=== PATIENT | female | born 1970 | race Caucasian/White ===

== ENCOUNTER 2021-04-10 17:00 | Outpatient (REF) | payer MEDICARE, MEDICAID, SELFPAY | END 2021-04-10 17:01 | disposition home or self-care (01) | LOC: HO.LAB 17:00 | PROVIDERS: Visit Provider Hospitalist | DX: Z20.822 Contact with and (suspected) exposure to COVID-19 (principal); R68.83 Chills (without fever) | CPT/HCPCS: U0003; U0005 ==

== ENCOUNTER → 2022-08-14 14:34 | Outpatient (BNVA) | payer MEDICARE, MEDICAID, SELFPAY | PROVIDERS: PCP Hospitalist; Visit Provider Surgery Vascular Surgery | DX: I83.12 Varicose veins of left lower extremity with inflammation (principal) | CPT/HCPCS: 99202 ==

== ENCOUNTER 2022-11-04 14:25 | Outpatient (REF) | payer MEDICARE, MEDICAID, SELFPAY ==
[2022-11-04 15:39] LABS: MANUAL DIFF FLAG NO
[2022-11-04 18:03] LABS: Basophils Percent Auto 0.4 % (0-2); Eosinophils Absolute Auto 0.1 X10*3/uL (0.0-0.4); Eosinophils Percent Auto 1.6 % (0-4); Hematocrit 42.5 % (37.0-47.0); Hemoglobin 13.6 g/dl (12.0-16.0); Imm Gran Abs Auto 0.02 X10*3/uL (0.00-0.03); Imm Gran Pct Auto 0.2 % (0.0-0.4); Immature Retic Fraction 12.8 % (3.0-15.9); Lymphocytes Percent Auto 24.3 % (20-40); Mean Corpuscular Hemoglobin 28.1 pg (27.0-33.0); Mean Corpuscular Volume 87.8 fL (80.0-98.0); Mean Platelet Volume 10.2 fL (9.4-12.3); Monocytes Absolute Auto 0.7 X10*3/uL (0.1-1.2); Monocytes Percent Auto 8.2 % (2-11); Neutrophils Absolute Auto 5.3 x10*3/uL (2.0-8.3); Neutrophils Percent Auto 65.3 % (45-73); Platelet Count 276 X10*3/uL (160-400); Red Blood Count 4.84 X10*6/uL (4.20-5.50); Retic HGB Equivalent 33.4 pg (30.0-35.0); Reticulocyte Percent 1.8 % (0.5-1.8); Reticulocytes Absolute 0.087 X10*6/uL (0.026-0.095); White Blood Count 8.1 X10*3/uL (4.8-10.8)
[2022-11-04 18:28] LABS: Anion Gap 18 (12-20); Blood Urea Nitrogen 22 mg/dL (9-16); Carbon Dioxide 21 mmol/L (22-29); Chloride 107 mmol/L (96-108); Estimated Glomerular Filt Rate > 60; Glucose Random 90 mg/dL (60-115); Iron 71 mcg/dL (30-160); Percent Iron Saturation 21 % (15-50); Potassium 4.2 mmol/L (3.3-5.1); Sodium 142 mmol/L (135-145); Total Iron Binding Capacity 346 mcg/dL (228-428); Unsaturated Iron Binding 275 ug/dL
== END 2022-11-04 14:26 | disposition home or self-care (01) ==
LOC: HO.LAB 14:25
PROVIDERS: Absent Provider Family Medicine; PCP Hospitalist; Visit Provider Nurse Practitioner Family
DX: J44.9 Chronic obstructive pulmonary disease, unspecified (principal); R05.9 Cough, unspecified; R06.2 Wheezing; Z87.891 Personal history of nicotine dependence
CPT/HCPCS: 36415; 80048; 82785; 83540; 85025; 85045; 86003; 94618; 99202

== ENCOUNTER 2022-11-04 14:25 | Outpatient (AMB) | payer MEDICARE, MEDICAID, SELFPAY ==
--- NOTE | 2022-11-04 14:27 | A.OFFVIS_ITS ---
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 Supervisor Required: No Contour Sander: Contour Sander offered & declined Accompanied by: Self / Same As Patient Allergies venlafaxine [From Effexor] Allergy (Unknown, Verified 11/04/22 14:34) Unknown Medication List - Last Reconciled 11/04/22 by Sushma Parker LPN acetaminophen (Tylenol) 325 mg PO QID PRN albuterol sulfate 90 mcg/actuation (Ventolin HFA) 2 puffs PO Q4-6H PRN albuterol sulfate 2.5 mg (3 mL) inhalation Q4-6H PRN clonazepam mg PO diclofenac sodium 1% 4 grams topical QID PRN 30 days flunisolide 1 spray intranasal BID 1 month fluoxetine mg PO gabapentin 300 mg PO TID 30 days ibuprofen 800 mg PO Q8H ipratropium bromide 17 mcg/actuation (Atrovent HFA) 2 puffs inhalation QID lamotrigine 200 mg PO DAILY meloxicam 15 mg PO DAILY 30 days montelukast 10 mg PO DAILY 3 months prednisone 60 mg PO DAILY HPI Cough HPI Details Paula is a pleasant 52 year old female, former tobacco smoker, quit last year, with 30 pack year history, everyday marijuana vaper with underlying history of asthma and environmental allergies. She was referred by PCP for pulmonary evaluation. She reports progressively worsening dyspnea on exertion, wheezing and dry cough since having COVID last November. She has been using singulair, Atrovent and albuterol with suboptimal control. She avoids using albuterol due to tremors and palpitations. 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 She reports environmental allergies as well as allergies to cats and dogs. She denies any recent allergy testing. She denies any childhood asthma. She reports maternal grandmother, smoker, had lung cancer. [facility] Medical History (Updated 11/04/22 @ 15:48 by Celina Wallace NP) Polycythemia Surgical History H/O right knee surgery History of cholecystectomy History of extraction of renal calculus Hx of spinal fusion Family History Father Diabetes Heart disease Alzheimer disease Mother Diabetes Stroke Brain tumor H/O bilateral mastectomy Maternal Grandmother Lung cancer Brother Hypertension Obesity Diabetes Family/Other Polycythemia Diabetes Social History (Updated 11/04/22 @ 14:37 by Sushma Parker LPN) Housing: House Alcohol intake: never Patient Tobacco Use Status: Former Tobacco user Cigarettes Per Day: 10 Years Smoked: 30 intermittently. e-Cigarette/Vaping Use: Never Used Second Hand Smoke Exposure: No Substance Use Type: Marijuana service: No Current occupational status: disabled Cognitive needs: No Hearing needs: Yes Vision needs: No Review of Systems Const Denies chills, Denies excessive sweating, Denies fever(s), Denies headache(s) and Denies night sweats Eyes Denies dry eyes, Denies irritation and Reports itchy eyes ENT Reports Normal hearing present, Denies headache(s), Denies nasal congestion, Denies nasal discharge, Denies post nasal drip and Denies sore throat Card Denies chest pain, Denies chest pain at rest, Denies chest pain with activity, Denies claudication, Denies leg edema, Reports dyspnea on exertion, Denies orthopnea and Denies paroxysmal nocturnal dyspnea Resp Denies chest congestion, Reports cough, Denies excessive phlegm production, Denies pain on inspiration, Denies pain with cough, Reports dyspnea on exertion, Denies stridor and Reports wheezing Musc Denies myalgias Neuro Reports Normal hearing present and Denies headache(s) Endo Denies excessive sweating Jasmeet/Lymph Denies lymphadenopathy Aller/Immun Reports itchy eyes, Reports seasonal rhinorrhea and Reports wheezing Physical Exam Vital Signs: Last Vital Signs Temp 76 F L 11/04/22 14:28 Pulse 96 11/04/22 14:28 BP 146/74 H 11/04/22 14:28 Pulse Ox 98 11/04/22 14:28 BMI result Body Mass Index 51.9 Const General: cooperative, healthy appearing, comfortable, no acute distress, well developed and alert Nutritional Appearance: obese Orientation/consciousness: patient oriented x3 Limitations: no limitations HEENT Head: Yes normal to inspection, Yes normocephalic and Yes atraumatic Ears: hearing grossly normal bilaterally and external ears normal Eyes General: appearance normal, both eyes and all related structures Eyelids: Yes eyelids normal Sclerae: sclerae normal EOM: EOMs intact bilaterally Neck Neck: Yes normal visual inspection and Yes no lymphadenopathy Lymphatic: no lymphadenopathy noted Chest Chest palpation & inspection: normal inspection of the chest Resp Effort & Inspection: normal respiratory effort, able to speak in complete sentences, no audible wheezes, no cough, no stridor, not tachypneic, no tripod positioning and no use of accessory muscles Auscultation: clear to auscultation bilaterally Cardio Jugular venous distension: no JVD Rate: regular rate Rhythm: regular rhythm Skin Other: warm, dry General skin exam: no rashes or lesions noted Neuro General: patient oriented x3 Cranial nerves: Yes Normal hearing present Cognition (Neuro): normal cognition Gait exam (Neuro): Normal gait present Extrem General: Yes normal to inspection, Yes capillary refill normal, Yes no clubbing, cyanosis or edema and Yes no pedal edema Psych Appearance: grossly normal and well kempt Speech and movement: Normal speech and movement present and Clear speech present Affect: normal affect Attitude: cooperative Thought process: Normal thought process present Thought content: Normal thought content present Insight: Good insight present (Psych) Judgement: Good judgement present (Psych) Office Procedures 6 Minute Walk Time:: 15:30 SPO2 % at rest: 98 Pulse at rest: 79 SPO2 % during excercise: 95 Pulse during excercise: 103 SPO2 % after excercise: 98 Pulse after excercise: 93 Distance in yards walked: 150 Bri Score: 7 Performance Observations:: Paula walked on level ground without assistance, she walked on room air maintaining her SPO2 95-97%. No supplemental O2 needed. [address]7717 - 6 Minute Walk Assessment & Plan Assessment & Plan (1) COPD (chronic obstructive pulmonary disease): Code(s): J44.9 - Chronic obstructive pulmonary disease, unspecified (2) Cough: Code(s): R05.9 - Cough, unspecified (3) Shortness of breath: Code(s): R06.02 - Shortness of breath (4) Morbid obesity: Code(s): E66.01 - Morbid (severe) obesity due to excess calories (5) Personal history of tobacco use: Code(s): Z87.891 - Personal history of nicotine dependence Plan Paula's symptoms are likely multifactorial with contribution from underlying pulmonary and obesity/deconditioning etiologies. She reported dyspnea with minimal exertion and 6MWT was performed. At this time, there is no need for supplemental oxygen as she mainted an oxygen saturation above 95%. Will send for PFT and chest CT to thoroughly evaluate. Will send in xopenex to trial as she can not tolerate albuterol due to palpitations and tremors. All questions were answered and patient is in agreement of plan. Will follow up after to review results Orders: Orders Rast Allergen 11/04/22 Z91.09 - Other allergy status, other than to drugs and biological substances AMB 6 minute walk 11/04/22 J44.9 - Chronic obstructive pulmonary disease, un specified Medications: New levalbuterol tartrate 45 mcg/actuation 1 puff inhalation Q4-6H PRN 1 ea 6RF shortness of breath albuterol sulfate 1.25 mg (3 mL) inhalation Q4-6H PRN 90 mL 0RF shortness of breath or wheezing Discontinued albuterol sulfate Discontinued Reason: Patient Completed Course 2.5 mg (3 mL) inhalation Q4-6H PRN 90 mL 1RF shortness of breath or wheezing Coding Level of Care Code New Pt Level 4 (38364) Diagnoses COPD (chronic obstructive pulmonary disease) J44.9 Cough R05.9 Shortness of breath R06.02 Morbid obesity E66.01 Personal history of tobacco use Z87.891 CPT Codes Coding ([id number])
[2022-11-04 14:28] VITALS: BP 146/74; PULSE 96; TEMP 24.4; O2SAT 98; BMI 51.9
[2022-11-04 15:19] VITALS: PULSE 79; O2SAT 98
== END 2022-11-04 15:24 | disposition home or self-care (01) ==
PROVIDERS: PCP Hospitalist; Visit Provider Nurse Practitioner Family
DX: J44.9 Chronic obstructive pulmonary disease, unspecified (principal); R05.9 Cough, unspecified; R06.02 Shortness of breath; E66.01 Morbid (severe) obesity due to excess calories; Z87.891 Personal history of nicotine dependence
CPT/HCPCS: 94618; 99204

== ENCOUNTER 2022-12-19 08:35 | Outpatient (REF) | payer MEDICARE, MEDICAID, SELFPAY ==
--- NOTE | ~2022-12-19 | US_ITS ---
EXAMINATION: US VENOUS BILATERAL LOWER EXTREMITIES (REFLUX EXAM) CLINICAL INDICATION: Varicose veins of right lower extremity with inflammation. COMPARISON: None available. TECHNIQUE: Color flow triplex imaging and compression Doppler was performed to evaluate both the deep and the superficial systems bilaterally. To evaluate the superficial system, the examination was performed in the upright position. Color-flow Doppler ultrasound and compression ultrasound were utilized. In addition, maneuvers were utilized to demonstrate reflux. FINDINGS: 1. DEEP VENOUS ULTRASOUND OF THE RIGHT LOWER EXTREMITY: Respiratory variation, normal compression and augmented flow are noted in the right common femoral vein as well as the right popliteal vein and there is no evidence of deep venous thrombosis at these locations. There is no evidence of reflux in the deep system in either the common femoral vein or the popliteal vein. There is no evidence of a Townsend's cyst. 2. SUPERFICIAL ULTRASOUND WITH DOPPLER OF RIGHT LOWER EXTREMITY: The right great saphenous vein at the saphenofemoral junction measures 8 mm, at the proximal thigh 8 mm, at the mid thigh 3 mm, above the knee 4 mm, at the knee 3 mm, below the knee 3 mm, midcalf 3 mm and at the ankle measures 3 mm. There is no reflux demonstrated in the right great saphenous vein. Duplicated Right Great Saphenous Vein: None. The right small saphenous vein measures 4 mm and shows no reflux. Accessory Vein of Giacomini: None. Incompetent Perforators: None. Varices Present: None. 3. DEEP VENOUS ULTRASOUND OF THE LEFT LOWER EXTREMITY: Respiratory variation, normal compression and augmented flow are noted in the left common femoral vein as well as the left popliteal vein and there is no evidence of deep venous thrombosis at these locations. There is no evidence of reflux in the deep system in either the common femoral vein or the popliteal vein. There is no evidence of a Townsend's cyst. 4. SUPERFICIAL ULTRASOUND WITH DOPPLER OF LEFT LOWER EXTREMITY: Left great saphenous vein at the saphenofemoral junction measures 9 mm, at the proximal thigh 7 mm, at the mid thigh 5 mm, above the knee 4 mm, at the knee 3 mm, below the knee 3 mm, midcalf 3 mm and at the ankle measures 3 mm. There is no reflux demonstrated in the left great saphenous vein. Duplicated Left Great Saphenous Vein: None. The left small saphenous vein measures 6 mm and shows no reflux. Accessory Vein of Giacomini: None. Incompetent Perforators: None. Varices Present: None. US/US venous duplex LE BI IMPRESSION: 1. No evidence of reflux or thrombus in the common femoral veins or popliteal veins bilaterally. 2. The saphenous systems are competent bilaterally.
== END 2022-12-19 08:36 | disposition home or self-care (01) ==
LOC: HO.US 08:35
PROVIDERS: PCP Hospitalist; Visit Provider Surgery Vascular Surgery
DX: I83.12 Varicose veins of left lower extremity with inflammation (principal)
CPT/HCPCS: 93970

== ENCOUNTER 2022-12-29 11:33 | Outpatient (AMB) | payer MEDICARE, MEDICAID, SELFPAY ==
--- NOTE | 2022-12-29 11:48 | MHC.PC.OV ---
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 Referral Stone Circular Sawyer Required: No Accompanied by: Self / Same As Patient Allergies venlafaxine [From Effexor] Allergy (Unknown, Verified 12/29/22 12:11) Unknown Medication List - Last Reconciled 12/29/22 by Erick Fernandez CNP acetaminophen (Tylenol) 325 mg PO QID PRN albuterol sulfate 90 mcg/actuation (Ventolin HFA) 2 puffs PO Q4-6H PRN albuterol sulfate 1.25 mg (3 mL) inhalation Q4-6H PRN clonazepam mg PO diclofenac sodium 1% 4 grams topical QID PRN 30 days flunisolide 1 spray intranasal BID 1 month fluoxetine mg PO gabapentin 300 mg PO TID 30 days ibuprofen 800 mg PO Q8H ipratropium bromide 17 mcg/actuation (Atrovent HFA) 2 puffs inhalation QID lamotrigine 200 mg PO DAILY levalbuterol tartrate 45 mcg/actuation 1 puff inhalation Q4-6H PRN meloxicam 15 mg PO DAILY 30 days Tobacco use date assessed: 09/16/22 Dental Screening Dental Screen Date: 12/29/22 Did you have a dental visit in the last 12 months?: Yes Did you have a dental problem in the last 6 months where you did not have access to dental care?: No Was dental information given to patient?: Patient has dentist HPI HPI Comments History of Present Illness Details 52-year-old female presents with complaints of two painful lumps to her left breast. She states she noticed the lumps a week ago. She notes she fell off an unlocked bed and landed on the left breast during a venous ultrasound a week ago. She reports pain and bruising to the left chest from the fall. She notes that she noticed the breast lump and started experiencing the pain before she fell. She states that her last mammogram was 3 years ago at [facility]: Normal [facility] Medical History Polycythemia Surgical History Hx of spinal fusion History of extraction of renal calculus H/O right knee surgery History of cholecystectomy Family History Father Diabetes Heart disease Alzheimer disease Mother Diabetes Stroke Brain tumor H/O bilateral mastectomy Maternal Grandmother Lung cancer Brother Hypertension Obesity Diabetes Family/Other Polycythemia Diabetes Social History Housing: House Alcohol intake: never Patient Tobacco Use Status: Former Tobacco user Cigarettes Per Day: 10 Years Smoked: 30 intermittently. e-Cigarette/Vaping Use: Currently Using Second Hand Smoke Exposure: No Substance Use Type: Marijuana service: No Current occupational status: disabled Cognitive needs: No Hearing needs: No Vision needs: Yes Questionnaire Thrive Questionnaire Date Thrive assessed: 09/16/22 PIETRO-7 AMB Questionnaire PIETRO-7 Date PIETRO - 7 assessed: 09/16/22 Source: Developed by Drs. Yaron Joseph, Charlotte Lang, Thomas Mckay and colleagues, with an educational saurabh from [employer]. Review of Systems Const Details: Const Denies chills, Denies fatigue, Denies fever(s), Denies headache(s) and Denies weakness ENT Denies dizziness and Denies headache(s) Card Denies chest pain, Denies lightheadedness, Denies dyspnea and Denies other (Palpitations) Resp Denies cough, Denies dyspnea, Denies wheezing and Denies other ( shortness of breath) GI Denies abdominal pain, Denies melena, Denies hematochezia, Denies change in bowel habits, Denies dyspepsia and Denies nausea Denies hematuria and Denies dysuria Musc Denies abnormal gait, Denies myalgias, Denies arthralgias, Denies numbness and Denies tingling Skin/Breast Reports as per HPI Neuro Denies abnormal gait, Denies dizziness, Denies headache(s), Denies memory loss, Denies numbness, Denies Sensory deficit (Neuro), Denies tingling and Denies weakness Psych Denies anxiety, Denies depression, Denies memory loss Endo Denies cold intolerance, Denies fatigue, Denies heat intolerance, Denies polydipsia and Denies polyuria Aller/Immun Denies wheezing Physical exam (Primary Care) Vital Signs: Last Vital Signs Temp 97.5 F 12/29/22 11:49 Pulse 81 12/29/22 11:49 Resp 12 12/29/22 11:49 BP 128/74 12/29/22 11:49 Pulse Ox 99 12/29/22 11:49 Oxygen Delivery Method Room Air 12/29/22 11:49 BMI result Body Mass Index 53.8 Tobacco/Smoking Status: Tobacco use Status Tobacco use date assessed 09/16/22 12/29/22 12:00 Patient Tobacco Use Status Former Tobacco user 12/29/22 12:00 e-Cigarette/Vaping Use Currently Using 12/29/22 12:00 Thrive Assessment: Date of Thrive Assessment Date Thrive assessed 09/16/22 12/29/22 12:00 Const Other: General: no acute distress and well developed Nutritional Appearance: well nourished Orientation/consciousness: patient oriented x3 HENMT Head: Yes normocephalic and Yes atraumatic Eyes General: appearance normal, both eyes and all related structures Pupils: Equal, round and reactive pupils present EOM: EOMs intact bilaterally Resp Effort & Inspection: normal respiratory effort Auscultation: clear to auscultation bilaterally Cardio Rate: regular rate Rhythm: regular rhythm Heart sounds: S1 normal heart sound present, S2 normal heart sound present, no gallops, no murmurs and no rubs GI Palpation (GI): No Abdominal aortic bruit present, Soft to palpation, nontender, No hepatosplenomegaly present and No Rebound tenderness present Auscultation: normal bowel sounds General: Yes no CVA tenderness Back/Spine/Pelvis Back: no CVA tenderness Cervical Spine: cervical ROM normal and No Cervical spine tenderness Thoracic/Lumbar Spine: thoraco-lumbar ROM normal, No pain with thoraco-lumbar ROM, No thoracic spinal tenderness and No lumbar spinal tenderness Extrem General: Yes normal to inspection, No edema and No calf tenderness Skin General: warm and dry. Normal skin color. Normal skin turgor Lesions: Approximately 2.5 cm, slightly raised, round, tender, soft lesion noted at 09:00 o'clock of the left breast, no edema, erythema, or drainage Rashes: no rashes Trauma: Slight bruising to the left upper chest Wounds: no wounds Neuro General: patient oriented x3, gait normal and no focal neuro deficit Cranial nerves: Yes Equal, round and reactive pupils present Cognition (Neuro): normal cognition Gait exam (Neuro): Normal gait present Sensory Exam: No Sensory deficit (Neuro) Psych Appearance: grossly normal Affect: normal affect Attitude: cooperative Thought process: Normal thought process present Assessment and Plan Assessment & Plan (1) Lump of left breast: Code(s): N63.20 - Unspecified lump in the left breast, unspecified quadrant Plan: Approximately 2.5 cm, slightly raised, round, tender, soft lesion noted at 09:00 o'clock of the left breast, no edema, erythema, or drainage. Likely benign cyst or normal breast tissue. Slight bruising to her upper left chest may be related to falling from exam bed to the floor during venous ultrasound of for left leg a week ago. Ultrasound of the left breast ordered Diagnostic mammogram ordered May take Tylenol ibuprofen or apply warm compresses for pain or discomfort Return with worsening or new symptoms Verbalized understanding and agreed with treatment plan. The MA was present as a sales agent food vending service for breasts assessment. Orders: Orders US breast LT complete Today N63.20 - Unspecified lump in the left breast, unspecified quadrant MM diagnostic mammo BI Today N63.20 - Unspecified lump in the left breast, unspecified quadrant Medications: Changed From levalbuterol tartrate 45 mcg/actuation 1 puff inhalation Q4-6H PRN 1 ea 6RF shortness of breath To levalbuterol tartrate 45 mcg/actuation 1 puff inhalation Q4-6H PRN shortness of breath Coding Level of Care Code Est Pt Level 3 (10966) Diagnoses Lump of left breast N63.20
[2022-12-29 11:49] VITALS: BP 128/74; PULSE 81; RESP 12; TEMP 36.4; O2SAT 99; BMI 53.8
== END 2022-12-29 12:39 | disposition home or self-care (01) ==
PROVIDERS: PCP Hospitalist; Visit Provider Nurse Practitioner Family
DX: N63.21 Unspecified lump in the left breast, upper outer quadrant (principal)
CPT/HCPCS: 99214

== ENCOUNTER → 2023-01-05 09:09 | Outpatient (BNV) | payer MEDICARE, MEDICAID, SELFPAY | PROVIDERS: Referring Provider Family Medicine; Visit Provider Internal Medicine Medical Oncology | DX: D75.1 Secondary polycythemia (principal) | CPT/HCPCS: 99204 ==

== ENCOUNTER → 2023-01-28 08:10 | Outpatient (BNVA) | payer MEDICARE, MEDICAID, SELFPAY | PROVIDERS: PCP Nurse Practitioner Family; Visit Provider Physician Assistant ==

== ENCOUNTER 2023-02-12 14:13 | Outpatient (AMB) | payer MEDICARE, MEDICAID, SELFPAY ==
--- NOTE | 2023-02-12 14:15 | MHC.OFFVIS ---
Intake Intake Visit Reasons: Follow up Intake Note: pt here for fu on 12/19/22 she states that both her legs are extremly painful and she has tingling thats been going on for months.She says that the gabapentin does help relieve some of her pain and helps her get threw the day Allergies venlafaxine [From Effexor] Allergy (Unknown, Verified 02/12/23 14:18) Unknown HPI Follow up HPI Details Morbidly obese 52-year-old female presents for follow-up regarding lower extremity pain and discomfort. She does have some mild swelling but that has been persistent for significant period of time. She is unable to wear compression stockings. Of note she does have significant back issues and has had prior back surgery. In addition she has orthopedic issues and needs her right hip and bilateral knee surgery by Dr. Meyer of [facility]. She now presents for follow-up with venous insufficiency testing. [facility] Medical History Polycythemia Surgical History Hx of spinal fusion History of extraction of renal calculus H/O right knee surgery History of cholecystectomy Family History Father Diabetes Heart disease Alzheimer disease Mother Diabetes Stroke Brain tumor H/O bilateral mastectomy Maternal Grandmother Lung cancer Brother Hypertension Obesity Diabetes Family/Other Polycythemia Diabetes Social History Household Members: None Housing: House Alcohol intake: never Patient Tobacco Use Status: Former Tobacco user Tobacco use type: Cigarette Years Smoked: 30 intermittently. e-Cigarette/Vaping Use: Currently Using Second Hand Smoke Exposure: No Substance Use Type: Marijuana service: No Current occupational status: disabled Cognitive needs: No Hearing needs: No Vision needs: Yes Review of Systems Const All systems reviewed & are unremarkable except as noted in HPI and below Reports no additional complaints ENT Reports Normal hearing present Card Denies chest pain, Denies chest pain at rest, Denies chest pain with activity and Denies pedal edema Resp Denies cough GI Denies abdominal pain Musc Denies abnormal gait, Denies muscle cramps and Denies radiating pain into limb Skin/Breast Denies skin ulcer and Denies wounds Neuro Reports Normal hearing present and Denies abnormal gait Psych Reports no additional complaints Physical Exam Const General: cooperative, healthy appearing and comfortable Orientation/consciousness: oriented to person, oriented to place and oriented to time HEENT Head: Yes normal to inspection Neck Neck: Yes normal visual inspection Carotids: no bruits Chest Chest palpation & inspection: normal inspection of the chest Resp Effort & Inspection: normal respiratory effort and able to speak in complete sentences Auscultation: clear to auscultation bilaterally, no crackles, no rales, no rhonchi and no wheezes Cardio Rate: regular rate Rhythm: regular rhythm Heart sounds: S1 normal heart sound present and S2 normal heart sound present Bruits: no carotid bruits Peripheral pulses: Peripheral pulses 2+ throughout GI Inspection: Yes normal to inspection Skin Wounds: no wounds Hair: normal Neuro General: oriented to person, oriented to place and oriented to time Cranial nerves: Yes CN's II-XII intact bilaterally and Yes Normal hearing present Cognition (Neuro): normal cognition Motor exam (neuro): 5/5 motor strength present throughout Extrem Other: venous exam: +2 edema General: No clubbing, No cyanosis and Yes edema Psych Appearance: grossly normal Mental Status: mental status grossly normal Speech and movement: Normal speech and movement present Results Reviewed Results Reviewed: Brief summary of venous insufficiency testing is as follows: right great saphenous vein: negative right small saphenous vein: negative right accessory vein: none present left great saphenous vein: negative left small saphenous vein: negative left accessory vein: none present Please note there is no evidence of any venous aneurysms or significant tortuosity Assessment & Plan Assessment & Plan (1) Leg pain: Code(s): M79.606 - Pain in leg, unspecified Qualifiers: Laterality: bilateral Qualified Code(s): M79.604 - Pain in right leg; M79.605 - Pain in left leg Plan: In short patient has bilateral lower extremity pain. It does not appear to be vascular in nature she does have palpable arterial pulses and venous insufficiency testing has shown to be negative. I do believe there is a neurogenic component related to her previous back issues in addition to a orthopedic component relating to her hips and knees. Due to her significant weight she is not eligible for orthopedic surgery until she loses some weight. She is stable from a vascular standpoint though she will follow up with us on an as-needed basis. Thank you for allowing us to assist in her care. If there are questions or concerns please do not hesitate to contact us. Coding Level of Care Code Est Pt Level 4 (67610) Diagnoses Pain in both lower extremities M79.604; M79.605 Laterality: bilateral
== END 2023-02-12 14:38 | disposition home or self-care (01) ==
PROVIDERS: PCP Nurse Practitioner Family; Visit Provider Surgery Vascular Surgery
DX: M79.604 Pain in right leg (principal); M79.605 Pain in left leg
CPT/HCPCS: 99213

== ENCOUNTER → 2023-02-12 14:13 | Outpatient (BNVA) | payer MEDICARE, MEDICAID, SELFPAY | PROVIDERS: PCP Nurse Practitioner Family; Visit Provider Surgery Vascular Surgery | DX: M79.604 Pain in right leg (principal); M79.605 Pain in left leg | CPT/HCPCS: 99212 ==

== ENCOUNTER 2023-02-23 08:08 | Outpatient (AMB) | payer MEDICARE, MEDICAID, SELFPAY ==
--- NOTE | 2023-02-23 08:13 | MHC.OFFVISWM ---
Intake VS Expanded 02/23/23 08:25 BP 140/78 H Blood Pressure Location Rt brachial Blood Pressure Position Sitting Pulse 70 Pulse Source Pulse Oximeter Temp 97.4 F Temperature Source Temporal Artery Scan Pulse Oximetry 96 Oxygen Delivery Method Room Air Height 5 ft 5 in Weight 332 lb BMI 55.2 Body Fat % 49.2 Body Fat Mass 163.4 Fat Free Mass 168.4 Visceral Fat Rating 20.0 Body Water % 36.2 Body Water Mass 120.2 Muscle Mass/Score 160.0 Basal Metabolic Rate/Score 2,434 Intake Visit Reasons: (OV) [employer] SWL BMI 55.3 Allergies venlafaxine [From Effexor] Allergy (Unknown, Verified 02/23/23 08:18) Unknown HPI HPI Comments History of Present Illness Details This is a 52 year old woman who is here to start SWL program with SWL classes. Her goal is to be able to sit and cross her legs. She reports first being concerned about her weight since age 22, highest weight 360 lbs has lost 100 lbs previously x 2 . She has tried multiple methods of weight loss including weight loss diets. without permanent results. She lives with alone with her dog. 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 Works a third [employer] as a [employer]. She wakes at: 6am, bed at 9:30- 10 am Breakfast: Bang or Monster energy drink. Skips breakfast every day. Lunch: 12 - 1pm. -2 cristofer crackers or hash browns. May have a sandwich or leftovers from work fridge. Coffee with 8 sugars and oatmilk, PB and banana Dinner: 4- 6pm -takeout 5 d/week. Air And Water Filler or salad always from fast food. Coke or Gingerale or water After dinner: chocolate or cookies, around 8 pm Other snacks: may snack with the kids at day care Liquids: sweet drinks and soda all day Alcohol intake: 1-2 times per year, tobacco: quit 3 years ago, restarted this weekend, marijuana:smokes throughout the day and uses gummies daily also. Exercise:physically active. At work has access to full gym. Has treadmill at home. Last mammogram: scheduled for this week Last pap smear: is due now control method: not sexually active colonoscopy - never JAYME: 6 ESS: 9 GERD: 8 QOL: 115 PFSH Medical History Polycythemia Surgical History Hx of spinal fusion History of extraction of renal calculus H/O right knee surgery History of cholecystectomy Family History Father Diabetes Heart disease Alzheimer disease Mother Diabetes Stroke Brain tumor H/O bilateral mastectomy Maternal Grandmother Lung cancer Brother Hypertension Obesity Diabetes Family/Other Polycythemia Diabetes Social History Household Members: None Housing: House Alcohol intake: never Patient Tobacco Use Status: Former Tobacco user Tobacco use type: Cigarette Cigarettes Per Day: 4 Years Smoked: 30 intermittently. e-Cigarette/Vaping Use: Currently Using Second Hand Smoke Exposure: No Substance Use Type: Marijuana service: No Current occupational status: disabled Cognitive needs: No Hearing needs: No Vision needs: Yes Physical Exam Vital Signs: Last Vital Signs Temp 97.4 F 02/23/23 08:25 Pulse 70 02/23/23 08:25 BP 140/78 H 02/23/23 08:25 Pulse Ox 96 02/23/23 08:25 Oxygen Delivery Method Room Air 02/23/23 08:25 BMI result Body Mass Index 55.2 Const General: cooperative, no acute distress and well developed Nutritional Appearance: obese Orientation/consciousness: patient oriented x3 HEENT Head: Yes normal to inspection Neck Neck: Yes normal visual inspection Thyroid: Thyroid normal Resp Effort & Inspection: normal respiratory effort Auscultation: clear to auscultation bilaterally Cardio Rate: regular rate Rhythm: regular rhythm Heart sounds: S1 normal heart sound present, S2 normal heart sound present and no murmurs GI Inspection: No distended, Yes Abdominal panniculus present, Yes obesity and Yes scar (well healed laparoscopic incisions) Palpation (GI): Soft to palpation, nontender and no guarding Skin General skin exam: no rashes or lesions noted and other (warm and dry) Wounds: no wounds Hair: normal Neuro General: patient oriented x3 Extrem General: Yes no pedal edema and Yes no calf tenderness Psych Attitude: cooperative Thought process: Normal thought process present Thought content: Normal thought content present Insight: Good insight present (Psych) Judgement: Good judgement present (Psych) Assessment & Plan Assessment & Plan (1) Morbid (severe) obesity due to excess calories: Code(s): E66.01 - Morbid (severe) obesity due to excess calories Plan: This is a 52 yo woman with morbid obesity, bipolar disorder and ADHD who will start SWL program to prepare for bariatric surgery. Blood work, h pylori , CXR, ECG, Abd ULS and UGI have been ordered. She is being scheduled for RD and BH initial consultations. She will start SWL classes and watch at 3 classes before her next appt with Allie. She will contact PCP for colonoscopy appt and pap smear. She has many lifestyle changes to make while preparing for bariatric surgery, and will need ongoing support for this. Will need to stop all tobacco and significantly limit her marijuana usage. 1. Adequate sleep of 7-8 hours per night discussed 2. Healthy meal plan - stop skipping meals and stop all sweetened drinks and caffeine throughout the day. All meals/MR's need to take 20 minutes to complete coffee with 2% milk only 9 am - protein shake with water or UAM 12 pm- dinner of 12 forks lean protein, 12 forks vegetable, 1 serving fruit 4 pm - protein shake with water or UAM 7 pm- bar Exercise - Cardio 4 d week = treadmill at speed 2.8, incline 2-6 - to burn 300 calories The importance of avoiding and breast feeding for at least 18 months after bariatric surgery was discussed in the information session and was reinforced today. Pt will purchase body composition analyzer (recommended list given to patient) and weight herself weekly. Next appt with me in 3 weeks. Text me with any questions and weekly weights. Patient is morbidly obese and is not considered stable at this time.?I spent a total of 60 minutes reviewing/updating records, examining the patient and counseling the patient on weight management as detailed above. (2) Personal history of tobacco use: Code(s): Z87.891 - Personal history of nicotine dependence (3) COPD (chronic obstructive pulmonary disease): Code(s): J44.9 - Chronic obstructive pulmonary disease, unspecified (4) Depression with anxiety: Code(s): F41.8 - Other specified anxiety disorders Orders: Orders IRON PROFILE Today E66.01 - Morbid (severe) obesity due to excess calories, F12.90 - Cannabis use, unspecified, uncomplicated, F41.8 - Other specified anxiety disorders, J44.9 - Chronic obstructive pulmonary disease, unspecified, Z87.891 - Personal history of nicotine dependence Complete Blood Count Auto Diff Today E66.01 - Morbid (severe) obesity due to excess calories, F12.90 - Cannabis use, unspecified, uncomplicated, F41.8 - Other specified anxiety disorders, J44.9 - Chronic obstructive pulmonary disease, unspecified, Z87.891 - Personal history of nicotine dependence Vitamin B1 Today E66.01 - Morbid (severe) obesity due to excess calories, F12.90 - Cannabis use, unspecified, uncomplicated, F41.8 - Other specified anxiety disorders, J44.9 - Chronic obstructive pulmonary disease, unspecified, Z87.891 - Personal history of nicotine dependence Vitamin A Today E66.01 - Morbid (severe) obesity due to excess calories, F12.90 - Cannabis use, unspecified, uncomplicated, F41.8 - Other specified anxiety disorders, J44.9 - Chronic obstructive pulmonary disease, unspecified, Z87.891 - Personal history of nicotine dependence C Reactive Protein Today E66.01 - Morbid (severe) obesity due to excess calories, F12.90 - Cannabis use, unspecified, uncomplicated, F41.8 - Other specified anxiety disorders, J44.9 - Chronic obstructive pulmonary disease, unspecified, Z87.891 - Personal history of nicotine dependence TSH reflex Free T4 Today E66.01 - Morbid (severe) obesity due to excess calories, F12.90 - Cannabis use, unspecified, uncomplicated, F41.8 - Other specified anxiety disorders, J44.9 - Chronic obstructive pulmonary disease, unspecified, Z87.891 - Personal history of nicotine dependence H Pylori Breath Test Today E66.01 - Morbid (severe) obesity due to excess calories, F12.90 - Cannabis use, unspecified, uncomplicated, F41.8 - Other specified anxiety disorders, J44.9 - Chronic obstructive pulmonary disease, unspecified, Z87.891 - Personal history of nicotine dependence Vitamin D 25-OH Total Today E66.01 - Morbid (severe) obesity due to excess calories, F12.90 - Cannabis use, unspecified, uncomplicated, F41.8 - Other specified anxiety disorders, J44.9 - Chronic obstructive pulmonary disease, unspecified, Z87.891 - Personal history of nicotine dependence Hemoglobin A1c Today E66.01 - Morbid (severe) obesity due to excess calories, F12.90 - Cannabis use, unspecified, uncomplicated, F41.8 - Other specified anxiety disorders, J44.9 - Chronic obstructive pulmonary disease, unspecified, Z87.891 - Personal history of nicotine dependence US abdomen comp w elastography Today E66.01 - Morbid (severe) obesity due to excess calories, F12.90 - Cannabis use, unspecified, uncomplicated, F41.8 - Other specified anxiety disorders, J44.9 - Chronic obstructive pulmonary disease, unspecified, Z87.891 - Personal history of nicotine dependence Insulin Today E66.01 - Morbid (severe) obesity due to excess calories, F12.90 - Cannabis use, unspecified, uncomplicated, F41.8 - Other specified anxiety disorders, J44.9 - Chronic obstructive pulmonary disease, unspecified, Z87.891 - Personal history of nicotine dependence Lipid Panel Today E66.01 - Morbid (severe) obesity due to excess calories, F12.90 - Cannabis use, unspecified, uncomplicated, F41.8 - Other specified anxiety disorders, J44.9 - Chronic obstructive pulmonary disease, unspecified, Z87.891 - Personal history of nicotine dependence Vitamin B12 and Folate Today E66.01 - Morbid (severe) obesity due to excess calories, F12.90 - Cannabis use, unspecified, uncomplicated, F41.8 - Other specified anxiety disorders, J44.9 - Chronic obstructive pulmonary disease, unspecified, Z87.891 - Personal history of nicotine dependence Zinc Today E66.01 - Morbid (severe) obesity due to excess calories, F12.90 - Cannabis use, unspecified, uncomplicated, F41.8 - Other specified anxiety disorders, J44.9 - Chronic obstructive pulmonary disease, unspecified, Z87.891 - Personal history of nicotine dependence Comprehensive Met. Panel Today E66.01 - Morbid (severe) obesity due to excess calories, F12.90 - Cannabis use, unspecified, uncomplicated, F41.8 - Other specified anxiety disorders, J44.9 - Chronic obstructive pulmonary disease, unspecified, Z87.891 - Personal history of nicotine dependence Ferritin Today E66.01 - Morbid (severe) obesity due to excess calories, F12.90 - Cannabis use, unspecified, uncomplicated, F41.8 - Other specified anxiety disorders, J44.9 - Chronic obstructive pulmonary disease, unspecified, Z87.891 - Personal history of nicotine dependence PTHI Today E66.01 - Morbid (severe) obesity due to excess calories, F12.90 - Cannabis use, unspecified, uncomplicated, F41.8 - Other specified anxiety disorders, J44.9 - Chronic obstructive pulmonary disease, unspecified, Z87.891 - Personal history of nicotine dependence XR chest 2V Today E66.01 - Morbid (severe) obesity due to excess calories, F12.90 - Cannabis use, unspecified, uncomplicated, F41.8 - Other specified anxiety disorders, J44.9 - Chronic obstructive pulmonary disease, unspecified, Z87.891 - Personal history of nicotine dependence ECG 12 lead EKG Today E66.01 - Morbid (severe) obesity due to excess calories, F12.90 - Cannabis use, unspecified, uncomplicated, F41.8 - Other specified anxiety disorders, J44.9 - Chronic obstructive pulmonary disease, unspecified, Z87.891 - Personal history of nicotine dependence FL upper GI w air Today E66.01 - Morbid (severe) obesity due to excess calories, F12.90 - Cannabis use, unspecified, uncomplicated, F41.8 - Other specified anxiety disorders, J44.9 - Chronic obstructive pulmonary disease, unspecified, Z87.891 - Personal history of nicotine dependence Referrals Behavioral Health Referral E66.01 - Morbid (severe) obesity due to excess calories, F12.90 - Cannabis use, unspecified, uncomplicated, F41.8 - Other specified anxiety disorders, J44.9 - Chronic obstructive pulmonary disease, unspecified, Z87.891 - Personal history of nicotine dependence Nutrition/Dietitian Referral E66.01 - Morbid (severe) obesity due to excess calories, F12.90 - Cannabis use, unspecified, uncomplicated, F41.8 - Other specified anxiety disorders, J44.9 - Chronic obstructive pulmonary disease, unspecified, Z87.891 - Personal history of nicotine dependence Coding Level of Care Code New Pt Level 5 (83219) Diagnoses Morbid (severe) obesity due to excess calories E66.01 Personal history of tobacco use Z87.891 COPD (chronic obstructive pulmonary disease) J44.9 Depression with anxiety F41.8
[2023-02-23 08:25] VITALS: BP 140/78; PULSE 70; TEMP 36.3; O2SAT 96; BMI 55.2
== END 2023-02-23 09:35 | disposition home or self-care (01) ==
PROVIDERS: PCP Nurse Practitioner Family; Visit Provider Physician Assistant
DX: E66.01 Morbid (severe) obesity due to excess calories (principal); Z68.43 Body mass index [BMI] 50.0-59.9, adult; J44.9 Chronic obstructive pulmonary disease, unspecified; F41.8 Other specified anxiety disorders
CPT/HCPCS: 99205

== ENCOUNTER → 2023-02-23 08:08 | Outpatient (BNVA) | payer MEDICARE, MEDICAID, SELFPAY | PROVIDERS: PCP Nurse Practitioner Family; Visit Provider Physician Assistant | DX: E66.01 Morbid (severe) obesity due to excess calories (principal); J44.9 Chronic obstructive pulmonary disease, unspecified; F41.8 Other specified anxiety disorders; Z87.891 Personal history of nicotine dependence; Z68.43 Body mass index [BMI] 50.0-59.9, adult | CPT/HCPCS: 99202 ==

== ENCOUNTER 2023-05-05 13:55 | Outpatient (REF) | payer MEDICARE, MEDICAID, SELFPAY ==
--- NOTE | ~2023-05-05 | US_ITS ---
EXAMINATION: MM DIAGNOSTIC DIGITAL BREAST TOMOSYNTHESIS, BILATERAL US BREAST LIMITED, LEFT MAMMOGRAPHY: CLINICAL INFORMATION: 52-year-old female complaining of 2.5 cm slightly raised, round, tender, soft lump noted left breast lower inner quadrant, approximately 7:00-8:00 axis, felt x1 year. COMPARISON: Mammography: 04/05/2018. TECHNIQUE: Digital breast tomosynthesis is performed in both the craniocaudal and mediolateral oblique views along with computer-aided detection (CAD). Synthesized 2D images are generated from the tomosynthesis. In addition, bilateral 3-D exaggerated CC views, and added bilateral MLO views were obtained. FINDINGS: There are scattered areas of fibroglandular density (ACR BI-RADS breast composition Category b). There are stable benign rounded scattered calcifications bilaterally. There are no suspicious masses, suspicious grouped calcifications, or areas of architectural distortion in either breast. The parenchymal pattern is stable from prior exams. The area of palpable concern marked by a BB marker in the 7-8 o'clock axis left breast shows no underlying mammographic abnormality. No definite skin lesions seen. ULTRASOUND: CLINICAL INFORMATION: As above. COMPARISON: None TECHNIQUE: Targeted sonographic evaluation was performed using a high frequency linear transducer. Attention was focused on the lower inner quadrant the region of palpable concern left breast. Selected archived documentation. FINDINGS: LEFT BREAST: There is predominantly fatty breast tissue. No suspicious mass is seen. There is no pathologic acoustic shadowing. There is no cystic abnormality. No sonographic abnormality is evident in the region of palpable concern. US/US breast LT limited mamm only IMPRESSION: There are no findings suspicious for malignancy in either breast. There is no mammographic or sonographic abnormality in the region of palpable concern lower inner quadrant left breast. Recommend clinical management. Otherwise, recommend continuing routine annual screening mammography. OVERALL ASSESSMENT: Mammography: BI-RADS 2 - Benign Findings Ultrasound: BI-RADS 2 - Benign Findings RECOMMENDATION: 1. Patient should be managed based on the clinical impression. 2. Otherwise, routine annual screening mammography. Results were provided to the patient at time of visit by the technologist. This patient's information was entered into a reminder system with a target due date for their next mammogram.
== END 2023-05-05 13:56 | disposition home or self-care (01) ==
LOC: HO.MAMMO 13:55
PROVIDERS: PCP Nurse Practitioner Family; Visit Provider Nurse Practitioner Family
DX: N63.25 Unspecified lump in the left breast, overlapping quadrants (principal)
CPT/HCPCS: 76642; 77062; 77066

== ENCOUNTER → 2023-05-05 15:00 | Outpatient (BNV) | payer MEDICARE, MEDICAID, SELFPAY | PROVIDERS: PCP Nurse Practitioner Family; Visit Provider Radiology Diagnostic Radiology | DX: N63.24 Unspecified lump in the left breast, lower inner quadrant (principal) | CPT/HCPCS: 76642; 77062; 77066 ==

== ENCOUNTER 2023-08-05 07:52 | Outpatient (AMB) | payer MEDICARE, MEDICAID, SELFPAY ==
--- NOTE | 2023-08-05 07:56 | MHC.PC.OV ---
Vital Signs 08/05/23 08:00 Height 5 ft 5 in Weight 321 lb BMI 53.4 BP 133/68 Blood Pressure Location Lt radial Position Sitting Respiration 13 Pulse 76 Pulse Source Pulse Oximeter Pulse Oximetry (%) 95 Oxygen Delivery Method Room Air Intake Visit Reasons: ASHLY FROM ANH Intake Note: Patient is transferring care from to . Patient reports she has many concerns and she has a hard time focusing on what is most important. Patient reports she has extreme aching all over the body/joints and bones, particularly knees, hips, tops of feet, hands. Patient is concerned about her weight management as she needs to be down 260lbs in order for hip surgery to go as planned. Patient reports she had a period last week and would like a referral for care for menopause and see where she is with that. Patient takes anbren for symptoms of aches, pains, hot flashes. Patient reports taking vitamins krill oil, calcium/magnesium/zinc, and anbren. Patient would like to discuss vitamins that are needed. Professional Caster Required: No Accompanied by: Self / Same As Patient Allergies venlafaxine [From Effexor] Allergy (Unknown, Verified 08/05/23 08:28) Unknown Medication List - Last Reviewed 08/05/23 by Zena العراقي CMA acetaminophen (Tylenol) 325 mg PO QID PRN albuterol sulfate 90 mcg/actuation (Ventolin HFA) 2 puffs PO Q4-6H PRN albuterol sulfate 1.25 mg (3 mL) inhalation Q4-6H PRN clonazepam mg PO flunisolide 1 spray intranasal BID 1 month fluoxetine 40 mg PO DAILY gabapentin 300 mg PO TID 30 days ibuprofen 800 mg PO Q8H ipratropium bromide 17 mcg/actuation (Atrovent HFA) 2 puffs inhalation QID lamotrigine 200 mg PO DAILY levalbuterol tartrate 45 mcg/actuation 1 puff inhalation Q4-6H PRN trazodone mg PO Tobacco use date assessed: 08/05/23 Dental Screening Dental Screen Date: 08/05/23 Did you have a dental visit in the last 12 months?: Yes Did you have a dental problem in the last 6 months where you did not have access to dental care?: No Was dental information given to patient?: Patient has dentist HPI HPI Comments History of Present Illness Details 52-year-old female with polycythemia, current smoker, marijuana user, MDD, COPD, morbid obesity seasonal allergies, HLD Status post right knee surgery, cholecystectomy, extraction of renal calculus, spinal fusion Specialists Pulmonology Urology Vascular surgery Bariatric surgery Orthopedics Psych/Counseling Health Maintenance: Mammo 05/05/23 Colon referred for first colon today DEXA - cont to get her periods Pap overdue Tdap Due n/a at office today, she will RTO in 1 month for nurse visit to admin Here today to est care for CPE No longer ff'd by vascular - she was cleared she has chronic joint pain fell out of care w/ heme - aware she needs to cont phlebotomy, as this can contribute to her joint pain + SDOH - eviction and transportation -- referred [facility] Medical History Polycythemia Surgical History Hx of spinal fusion History of extraction of renal calculus H/O right knee surgery History of cholecystectomy Family History (Updated 08/05/23 @ 08:12 by Zena العراقي CMA) Father Diabetes Heart disease Alzheimer disease Mental health disorder Substance use disorder Mother Diabetes Stroke Brain tumor H/O bilateral mastectomy Mental health disorder Substance use disorder Maternal Grandmother Lung cancer Brother Hypertension Obesity Diabetes Family/Other Polycythemia Diabetes Social History (Updated 08/05/23 @ 08:14 by Zena العراقي CMA) Household Members: None Housing: House Are you a primary daycare worker to a significant other at home: No Do you presently have visiting nurse or other home services: No 75 years or older and lives alone: No Alcohol intake: never Patient Tobacco Use Status: Current everyday Tobacco user Tobacco use type: Cigarette Cigarette Packs Per Day: 1 Cigarettes Per Day: 20 Years Smoked: 1 e-Cigarette/Vaping Use: Never Used Second Hand Smoke Exposure: No Substance Use Type: Marijuana service: No Current occupational status: disabled 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 1. Little interest or pleasure in doing things: several days 2. Feeling down, depressed, or hopeless: nearly every day 3. Trouble falling or staying asleep, or sleeping too much: nearly every day 4. Feeling tired or having little energy: nearly every day 5. Poor appetite or overeating: nearly every day 6. Feeling bad about yourself - or that you are a failure or have let yourself or your family down: nearly every day 7. Trouble concentrating on things, such as reading the newspaper or watching television: nearly every day 8. Moving or speaking so slowly that other people could have noticed. Or the opposite - being so fidgety or restless that you have been moving around a lot more than usual: several days 9. Thoughts that you would be better off or of hurting yourself in some way: several days (Talks to a psychotherapist every week/once a month) Total score: 21 Depression Screening Interpretation: Positive Depression Screening Follow-up: Existing condition and In treatment Depression Screening Done: Yes 04814 - PHQ-9 Billing: Yes Source: Developed by Drs. Yaron Joseph, Charlotte Lang, Thomas Mckay and colleagues, with an educational saurabh from [employer]. Thrive Questionnaire Date Thrive assessed: 08/05/23 I am a: Patient What is your living situation today?: I have a place to live, but I am worried about losing it in the future Within the past 12 months, did the food you bought not last and you didn't have the money to get more?: Never true Within the past 12 months, did you worry whether your food would run out before you got money to buy more?: Never true Do you have trouble paying for medicines?: No Do you have trouble getting transportation to medical appointments?: No Do you have trouble paying your heating and electricity bill?: No Do you have trouble taking care of your child, family member or friend?: No Do you have trouble with day-to-day activities such as bathing, preparing meals, shopping, managing finances, etc.?: No Are you currently unemployed and looking for a job?: No Are you interested in more education?: No Please select the resources that you would like help with: Housing/Jail and Transportation Currently or been in a relationship where the following occur: no concerns reported THRIVE Score: 1 AUDIT C Alcohol Use Questionnaire (AUDIT-C) 1. How often do you have a drink containing alcohol?: Never 3. How often do you have six or more drinks on one occasion?: Never Total Score: 0 Score Reviewed/Action Taken: Yes PIETRO-7 AMB Questionnaire PIETRO-7 Date PIETRO - 7 assessed: 08/05/23 Feeling nervous, anxious, or on edge: 3 = Nearly every day Not being able to stop or control worryin = Nearly every day Worrying too much about different things: 3 = Nearly every day Trouble relaxin = Several days Being so restless that it is hard to sit still: 3 = Nearly every day Becoming easily annoyed or irritable: 3 = Nearly every day Feeling afraid as if something awful might happen: 3 = Nearly every day Total PIETRO-7 score (0-4 normal; 5-9 mild; 10-14 moderate; 15-21 severe): 19 Source: Developed by Drs. Yaron Joseph, Charlotte Lang, Thomas Mckay and colleagues, with an educational saurabh from [employer]. PIETRO-7 Assessment Billing PIETRO-7 Assessment Tool: PIETRO-7 Assessment 81071 Review of Systems Const Details: CONSTITUTIONAL: DENIES FEVER. SKIN: DENIES RASH. EYE: DENIES EYE PAIN. ENMT: DENIES SORE THROAT AND NASAL CONGESTION. RESPIRATORY: DENIES SHORTNESS OF BREATH AND COUGH. GASTROINTESTINAL: DENIES NAUSEA, VOMITING OR ABDOMINAL PAIN. CARDIOVASCULAR: DENIES CHEST PAIN AND SYNCOPE. GENITOURINARY: DENIES DYSURIA. NEUROLOGIC: DENIES HEADACHES, CONFUSION, AND WEAKNESS. PSYCHIATRIC: DENIES SUICIDAL THOUGHTS AND SUBSTANCE ABUSE. ALLERGY/ IMMUNOLOGIC: DENIES IMPAIRED IMMUNITY. Physical exam (Primary Care) Vital Signs: Last Vital Signs Pulse 76 08/05/23 08:00 Resp 13 08/05/23 08:00 BP 133/68 08/05/23 08:00 Pulse Ox 95 08/05/23 08:00 Oxygen Delivery Method Room Air 08/05/23 08:00 BMI result Body Mass Index 53.4 BMI Assessment/Plan discussion: High BMI High, discussed plan: lifestyle Tobacco/Smoking Status: Tobacco use Status Tobacco use date assessed 08/05/23 08/05/23 08:17 Patient Tobacco Use Status Current everyday Tobacco 08/05/23 08:17 Tobacco use type Cigarette 08/05/23 08:14 e-Cigarette/Vaping Use Never Used 08/05/23 08:17 Are you ready to quit: No Tobacco cessation counseling provided: Yes Items discussed: Other Relapse Prevention: discussed the importance of a supportive environment, discussed extending NRT, discussed negative mood or depression after quitting, weight gain after smoking is common and discussed dietary, exercise and/or lifestyle changes Number of minutes spent counselin CPT code: 04930 - 4-10 Minutes PHQ-9: PHQ-9 Score PHQ-9: Total score 21 08/05/23 08:17 Depression Screening Interpretation: Positive Depression Screening Follow-up: Existing condition and In treatment Thrive Assessment: Date of Thrive Assessment Date Thrive assessed 08/05/23 08/05/23 08:17 Currently or been in a relationship where the following occur: no concerns reported Advance Care Planning discussion: Exists, not on file Date of discussion: 08/05/23 Who was present: self Forms completed: Health Care Proxy and MOLST Time spent: 1-15 minutes, not on file Actual minutes spent: 3 Did not discuss due to Cultural/Spiritual beliefs: Yes Const Other: General: Well developed, well nourished, in no acute distress. Appears stated age. Head: Normocephalic, atraumatic. Eyes: Pupils are equal, round and reactive to light and accommodation. Conjunctivae are clear. Vision grossly normal. Ears: TMs with congestion bilat , EACS WNL Nose: Patent, without discharge. Mouth: There are no ulcers or lesions noted. No inflammation, no post nasal drip, no plaques nor exudates. Neck: Supple, no adenopathy or thyromegaly. Lungs: Clear to auscultation bilaterally. No rales, rhonchi or wheeze noted. Heart: Regular rate and rhythm. No murmurs, click, rubs or gallops are noted. DIM throughout Abdomen: Bowel sounds present in all quadrants. The abdomen is soft, nontender, technically difficult exam given body habitus Musculoskeletal: Joints are tender generally speaking, without swelling, redness, or effusions. Range of motion is observed to be normal. Pulses: Peripheral pulses are equal and palpable bilaterally. Extremities: No clubbing, cyanosis nor edema is noted. Neurologic: Gait and station normal. Cranial Nerves 2-12 intact. Motor strength grossly symmetrical and intact. No sensory loss. Balance normal. Skin: No rashes, ulcers, or lesions noted. Turgor is good. Skin color is good. Hair and nails are without abnormalities. Psych: Normal eye contact, affect and mood appropriate, and normal interactions. Patient is alert and appropriate to context. Assessment and Plan Assessment & Plan (1) Encounter for general adult medical examination without abnormal findings: Code(s): Z00.00 - Encounter for general adult medical examination without abnormal findings (2) Marijuana smoker: Comment: education provided Code(s): F12.90 - Cannabis use, unspecified, uncomplicated (3) COPD (chronic obstructive pulmonary disease): Comment: without exacerbation, [place] [facility] [place] cont inhalers Code(s): J44.9 - Chronic obstructive pulmonary disease, unspecified Qualifiers: COPD type: chronic bronchitis Chronic bronchitis type: simple Qualified Code(s): J41.0 - Simple chronic bronchitis (4) MDD (major depressive disorder), recurrent episode: Comment: current, active, PHQ + FFd by counseling and psychiatry Code(s): F33.9 - Major depressive disorder, recurrent, unspecified Qualifiers: Major depression episode severity: moderate Qualified Code(s): F33.1 - Major depressive disorder, recurrent, moderate (5) PIETRO (generalized anxiety disorder): Comment: current, active, PIETRO + FFd by counseling and psychiatry Code(s): F41.1 - Generalized anxiety disorder (6) Morbid (severe) obesity due to excess calories: Comment: life style mods Code(s): E66.01 - Morbid (severe) obesity due to excess calories (7) Hyperlipidemia: Comment: update labs today, starts meds PRN LDL goal <70 Code(s): E78.5 - Hyperlipidemia, unspecified Qualifiers: Hyperlipidemia type: mixed hyperlipidemia Qualified Code(s): E78.2 - Mixed hyperlipidemia (8) Personal history of tobacco use: Comment: smoking cessation edu provided Code(s): Z87.891 - Personal history of nicotine dependence (9) Laboratory exam ordered as part of routine general medical examination: Code(s): Z00.00 - Encounter for general adult medical examination without abnormal findings (10) Encounter for screening involving social determinants of health (SDoH): Comment: refer to NN Code(s): Z13.9 - Encounter for screening, unspecified (11) Screen for colon cancer: Comment: refer to GI for first screening colon Code(s): Z12.11 - Encounter for screening for malignant neoplasm of colon (12) Cervical cancer screening: Comment: refer to TOBACCO WRAPPING MACHINE TENDER Code(s): Z12.4 - Encounter for screening for malignant neoplasm of cervix (13) Environmental allergies: Comment: use otc meds prn Code(s): Z91.09 - Other allergy status, other than to drugs and biological substances (14) Polycythemia: Comment: check labs, encouraged care w/ heme for treatment new referral placed today Code(s): D75.1 - Secondary polycythemia Orders: Orders Hemoglobin A1c Today E66.01 - Morbid (severe) obesity due to excess calories, E78.5 - Hyperlipidemia, unspecified, F41.1 - Generalized anxiety disorder, Z00.00 - Encounter for general adult medical examination without abnormal findings LDL Cholesterol Direct Today E66.01 - Morbid (severe) obesity due to excess calories, E78.5 - Hyperlipidemia, unspecified, F41.1 - Generalized anxiety disorder, Z00.00 - Encounter for general adult medical examination without abnormal findings Microalbumin, Random (w Creat) Today E66.01 - Morbid (severe) obesity due to excess calories, E78.5 - Hyperlipidemia, unspecified, F41.1 - Generalized anxiety disorder, Z00.00 - Encounter for general adult medical examination without abnormal findings TSH reflex Free T4 Today E66.01 - Morbid (severe) obesity due to excess calories, E78.5 - Hyperlipidemia, unspecified, F41.1 - Generalized anxiety disorder, Z00.00 - Encounter for general adult medical examination without abnormal findings Magnesium Today E66.01 - Morbid (severe) obesity due to excess calories, E78.5 - Hyperlipidemia, unspecified, F41.1 - Generalized anxiety disorder, Z00.00 - Encounter for general adult medical examination without abnormal findings Comprehensive Met. Panel Today E66.01 - Morbid (severe) obesity due to excess calories, E78.5 - Hyperlipidemia, unspecified, F41.1 - Generalized anxiety disorder, Z00.00 - Encounter for general adult medical examination without abnormal findings Vitamin D 1,25 dihydroxy Today E66.01 - Morbid (severe) obesity due to excess calories, E78.5 - Hyperlipidemia, unspecified, F41.1 - Generalized anxiety disorder, Z00.00 - Encounter for general adult medical examination without abnormal findings Vitamin B12 and Folate Today E66.01 - Morbid (severe) obesity due to excess calories, E78.5 - Hyperlipidemia, unspecified, F41.1 - Generalized anxiety disorder, Z00.00 - Encounter for general adult medical examination without abnormal findings Phosphorus Today E66.01 - Morbid (severe) obesity due to excess calories, E78.5 - Hyperlipidemia, unspecified, F41.1 - Generalized anxiety disorder, Z00.00 - Encounter for general adult medical examination without abnormal findings Zinc Today E66.01 - Morbid (severe) obesity due to excess calories, E78.5 - Hyperlipidemia, unspecified, F41.1 - Generalized anxiety disorder, Z00.00 - Encounter for general adult medical examination without abnormal findings Complete Blood Count no Diff Today E66.01 - Morbid (severe) obesity due to excess calories, E78.5 - Hyperlipidemia, unspecified, F41.1 - Generalized anxiety disorder, Z00.00 - Encounter for general adult medical examination without abnormal findings IRON PROFILE Today E66.01 - Morbid (severe) obesity due to excess calories, E78.5 - Hyperlipidemia, unspecified, F41.1 - Generalized anxiety disorder, Z00.00 - Encounter for general adult medical examination without abnormal findings Referrals Nurse Navigator Referral Z13.9 - Encounter for screening, unspecified Gastroenterology Referral Z12.11 - Encounter for screening for malignant neoplasm of colon QUALITY CONTROL Referral Z12.4 - Encounter for screening for malignant neoplasm of cervix Hematology & Oncology Referral D75.1 - Secondary polycythemia Medications: Refilled gabapentin 300 mg PO TID 30 days 90 caps 2RF Patient Instructions: RTO 1 YEAR FOR CPE, sooner if needed or if labs are abnormal. RTO in about 1 month for Nurse visit for TDap HEALTH SCREENINGS FOR WOMEN AGES 18 TO 39 YOU SHOULD VISIT YOUR HEALTH CARE PROVIDER FROM TIME TO TIME, EVEN IF YOU ARE HEALTHY. THE PURPOSE OF THESE VISITS IS TO: SCREEN FOR MEDICAL ISSUES ASSESS YOUR RISK FOR FUTURE MEDICAL PROBLEMS ENCOURAGE A HEALTHY LIFESTYLE UPDATE VACCINATIONS AND OTHER PREVENTIVE CARE SERVICES HELP YOU GET TO KNOW YOUR PROVIDER IN CASE OF AN ILLNESS INFORMATION EVEN IF YOU FEEL FINE, YOU SHOULD STILL SEE YOUR PROVIDER FOR REGULAR CHECKUPS. THESE VISITS CAN HELP YOU AVOID PROBLEMS IN THE FUTURE. FOR EXAMPLE, THE ONLY WAY TO FIND OUT IF YOU HAVE HIGH BLOOD PRESSURE IS TO HAVE IT CHECKED REGULARLY. HIGH BLOOD SUGAR AND HIGH CHOLESTEROL LEVELS ALSO MAY NOT HAVE ANY SYMPTOMS IN THE EARLY STAGES. A SIMPLE BLOOD TEST CAN CHECK FOR THESE CONDITIONS. THERE ARE SPECIFIC TIMES WHEN YOU SHOULD SEE YOUR PROVIDER OR RECEIVE SPECIFIC HEALTH SCREENINGS. THE [employer] PREVENT[employer] PUBLISHES A LIST OF RECOMMENDED SCREENINGS. BELOW ARE SCREENING GUIDELINES FOR WOMEN AGES 18 TO 39. BLOOD PRESSURE SCREENING YOUR BLOOD PRESSURE SHOULD BE CHECKED AT LEAST ONCE EVERY 3 TO 5 YEARS IF: YOUR BLOOD PRESSURE IS IN THE NORMAL RANGE (TOP NUMBER LESS THAN 120 MM HG AND BOTTOM NUMBER LESS THAN 80 MM HG) YOU DON'T HAVE RISK FACTORS FOR HIGH BLOOD PRESSURE ASK YOUR PROVIDER IF YOU NEED YOUR BLOOD PRESSURE CHECKED MORE OFTEN IF: THE TOP NUMBER IS 120 TO 129 MM HG OR THE BOTTOM NUMBER IS 70 TO 79 MM HG YOU HAVE DIABETES, HEART DISEASE, KIDNEY PROBLEMS, ARE OVERWEIGHT, OR HAVE CERTAIN OTHER HEALTH CONDITIONS YOU HAVE A FIRST-DEGREE RELATIVE WITH HIGH BLOOD PRESSURE YOU ARE BLACK YOU HAD HIGH BLOOD PRESSURE DURING A IF THE TOP NUMBER IS 130 MM HG OR GREATER OR THE BOTTOM NUMBER IS 80 MM HG OR GREATER, THIS IS CONSIDERED STAGE 1 HYPERTENSION. SCHEDULE AN APPOINTMENT WITH YOUR PROVIDER TO LEARN HOW YOU CAN REDUCE YOUR BLOOD PRESSURE. WATCH FOR BLOOD PRESSURE SCREENINGS IN YOUR AREA. ASK YOUR PROVIDER IF YOU CAN STOP IN TO HAVE YOUR BLOOD PRESSURE CHECKED. BREAST CANCER SCREENING EXPERTS DO NOT AGREE ABOUT THE BENEFITS OF BREAST SELF-EXAMS IN FINDING BREAST CANCER OR SAVING LIVES. TALK TO YOUR PROVIDER ABOUT WHAT IS BEST FOR YOU. A SCREENING MAMMOGRAM IS NOT RECOMMENDED FOR MOST WOMEN UNDER AGE 40. YOUR PROVIDER MAY DISCUSS AND RECOMMEND MAMMOGRAMS, MRI SCANS, OR ULTRASOUNDS IF YOU HAVE AN INCREASED RISK FOR BREAST CANCER, SUCH : A MOTHER OR SISTER WHO HAD BREAST CANCER AT A YOUNG AGE (MOST OFTEN STARTING SCREENING EARLIER THAN THE AGE THE CLOSE RELATIVE WAS DIAGNOSED) YOU CARRY A HIGH-RISK GENETIC MARKER CERVICAL CANCER SCREENING CERVICAL CANCER SCREENING SHOULD START AT AGE 21 YEARS UNLESS YOUR PROVIDER ADVISES OTHERWISE. AFTER THE FIRST TEST: WOMEN AGES 21 THROUGH 29 SHOULD HAVE A PAP TEST EVERY 3 YEARS. EXOPRTS DO NOT AGREE ON WHETHER HPV TESTING IS RECOMMENDED FOR THIS AGE GROUP. WOMEN AGES 30 THROUGH 65 SHOULD BE SCREENED WITH EITHER A PAP TEST EVERY 3 YEARS OR THE HPV TEST EVERY 5 YEARS OR BOTH TESTS EVERY 5 YEARS (CALLED COTESTING ). WOMEN WHO HAVE BEEN TREATED FOR PRECANCER (CERVICAL DYSPLASIA) SHOULD CONTINUE TO HAVE PAP TESTS FOR 20 YEARS AFTER TREATMENT OR UNTIL AGE 65, WHICHEVER IS LONGER. IF YOU HAVE HAD YOUR UTERUS AND CERVIX REMOVED (TOTAL HYSTERECTOMY), AND YOU HAVE NOT BEEN DIAGNOSED WITH CERVICAL CANCER OR PRECANCER (HIGH GRADE CERVICAL NEOPLASIA), YOU DO NOT NEED CERVICAL CANCER SCREENING. CHOLESTEROL SCREENING CHOLESTEROL SCREENING SHOULD BEGIN AT: AGE 45 FOR WOMEN WITH NO KNOWN RISK FACTORS FOR CORONARY HEART DISEASE AGE 20 FOR WOMEN WITH KNOWN RISK FACTORS FOR CORONARY HEART DISEASE REPEAT CHOLESTEROL SCREENING SHOULD TAKE PLACE: EVERY 5 YEARS FOR WOMEN WITH NORMAL CHOLESTEROL LEVELS MORE OFTEN IF CHANGES OCCUR IN LIFESTYLE (INCLUDING WEIGHT GAIN AND DIET) MORE OFTEN IF YOU HAVE DIABETES, HEART DISEASE, KIDNEY PROBLEMS, OR CERTAIN OTHER CONDITIONS DIABETES SCREENING YOU SHOULD BE SCREENED FOR DIABETES STARTING AT AGE 35 AND THEN REPEATED EVERY 3 YEARS IF YOU HAVE NO RISK FACTORS FOR DIABETES. SCREENING MAY NEED TO START EARLIER AND BE REPEATED MORE OFTEN IF YOU HAVE OTHER RISK FACTORS FOR DIABETES, SUCH : YOU HAVE A FIRST DEGREE RELATIVE WITH DIABETES. YOU ARE OVERWEIGHT OR HAVE OBESITY. YOU HAVE HIGH BLOOD PRESSURE, PREDIABETES, OR A HISTORY OF HEART DISEASE. SCREENING FOR DIABETES SHOULD BE DONE IF YOU ARE PLANNING TO BECOME AND YOU ARE OVERWEIGHT AND HAVE OTHER RISK FACTORS SUCH HIGH BLOOD PRESSURE. DENTAL EXAM GO TO THE DENTIST ONCE OR TWICE EVERY YEAR FOR AN EXAM AND CLEANING. YOUR DENTIST WILL EVALUATE IF YOU NEED MORE FREQUENT VISITS. EYE EXAM HAVE AN EYE EXAM EVERY 5 TO 10 YEARS BEFORE AGE 40. IF YOU HAVE VISION PROBLEMS, HAVE AN EYE EXAM EVERY 2 YEARS OR MORE OFTEN IF RECOMMENDED BY YOUR PROVIDER. YOU SHOULD HAVE AN EYE EXAM THAT INCLUDES AN EXAMINATION OF YOUR RETINA (BACK OF YOUR EYE) AT LEAST EVERY YEAR IF YOU HAVE DIABETES. IMMUNIZATIONS COMMONLY NEEDED VACCINES INCLUDE: FLU SHOT: GET ONE EVERY YEAR. COVID-19 VACCINE: ASK YOUR PROVIDER WHAT IS BEST FOR YOU. TETANUS-DIPHTHERIA AND ACELLULAR PERTUSSIS (TDAP) VACCINE: HAVE ONE AT OR AFTER AGE 19 ONE OF YOUR TETANUS-DIPHTHERIA VACCINES IF YOU DID NOT RECEIVE IT AN ADOLESCENT. TETANUS-DIPHTHERIA: HAVE A BOOSTER (OR TDAP) EVERY 10 YEARS. VARICELLA VACCINE: RECEIVE 2 DOSES IF YOU NEVER HAD CHICKENPOX OR THE VARICELLA VACCINE. HEPATITIS B VACCINE: RECEIVE 2, 3, OR 4 DOSES, DEPENDING ON YOUR EXACT CIRCUMSTANCES. MEASLES, MUMPS, AND RUBELLA (MMR) VACCINE: RECEIVE 1 TO 2 DOSES IF YOU ARE NOT ALREADY IMMUNE TO MMR. YOUR PROVIDER CAN TELL YOU IF YOU ARE IMMUNE. ASK YOUR PROVIDER ABOUT THE HUMAN PAPILLOMAVIRUS (HPV) VACCINE IF: YOU HAVE NOT RECEIVED THE HPV VACCINE IN THE PAST YOU HAVE NOT COMPLETED THE FULL VACCINE SERIES (YOU SHOULD CATCH UP ON THIS SHOT) ASK YOUR PROVIDER IF YOU SHOULD RECEIVE OTHER IMMUNIZATIONS IF YOU HAVE CERTAIN HEALTH PROBLEMS THAT INCREASE YOUR RISK FOR SOME DISEASES SUCH PNEUMONIA. INFECTIOUS DISEASE SCREENING WOMEN WHO ARE SEXUALLY ACTIVE SHOULD BE SCREENED FOR CHLAMYDIA AND GONORRHEA UP UNTIL AGE 25. WOMEN 25 YEARS AND OLDER SHOULD BE SCREENED FOR CHLAMYDIA AND GONORRHEA IF AT HIGH RISK. SCREENING FOR HEPATITIS C: ALL ADULTS AGES 18 TO 79 SHOULD GET A ONE-TIME TEST FOR HEPATITIS C. PEOPLE SHOULD BE SCREENED AT EVERY . SCREENING FOR HUMAN IMMUNODEFICIENCY VIRUS (HIV): ALL PEOPLE AGES 15 TO 65 SHOULD GET A ONE-TIME TEST FOR HIV. DEPENDING ON YOUR LIFESTYLE AND MEDICAL HISTORY, YOU MAY ALSO NEED TO BE SCREENED FOR INFECTIONS SUCH SYPHILIS AND HIV, WELL OTHER INFECTIONS. PHYSICAL EXAM ALL ADULTS SHOULD VISIT THEIR PROVIDER FROM TIME TO TIME, EVEN IF THEY ARE HEALTHY. THE PURPOSE OF THESE VISITS IS TO: SCREEN FOR DISEASE ASSESS YOUR RISK OF FUTURE MEDICAL PROBLEMS ENCOURAGE A HEALTHY LIFESTYLE UPDATE YOUR VACCINATIONS AND OTHER PREVENTIVE CARE SERVICES MAINTAIN A RELATIONSHIP WITH A PROVIDER IN CASE OF AN ILLNESS YOUR HEIGHT, WEIGHT, AND BMI SHOULD BE CHECKED AT EVERY EXAM. DURING YOUR EXAM, YOUR PROVIDER MAY ASK YOU ABOUT: DEPRESSION AND ANXIETY DIET AND EXERCISE ALCOHOL AND TOBACCO USE SAFETY ISSUES, SUCH USING SEAT BELTS, SMOKE DETECTORS, AND INTIMATE PARTNER VIOLENCE YOUR MEDICINES AND RISK FOR INTERACTIONS SKIN SELF-EXAM YOUR PROVIDER MAY CHECK YOUR SKIN FOR SIGNS OF SKIN CANCER, ESPECIALLY IF YOU'RE AT HIGH RISK, SUCH IF YOU: HAVE HAD SKIN CANCER BEFORE HAVE CLOSE RELATIVES WITH SKIN CANCER HAVE A WEAKENED IMMUNE SYSTEM OTHER SCREENING TALK WITH YOUR PROVIDER ABOUT COLON CANCER SCREENING IF YOU HAVE A STRONG FAMILY HISTORY OF COLON CANCER OR POLYPS, OR IF YOU HAVE HAD INFLAMMATORY BOWEL DISEASE OR POLYPS YOURSELF. ROUTINE BONE DENSITY SCREENING OF WOMEN UNDER 40 IS NOT RECOMMENDED. Smoking Cessation How to Quit There are a lot of ways to quit smoking and many resources to help you. Family members, friends, and co-workers may be supportive or encouraging, but to be successful the desire and commitment to quit must be your own. Most people who have been able to successfully quit smoking made at least one unsuccessful attempt in the past. Try not to view past attempts to quit as failures, but rather as learning experiences. Stopping smoking or using smokeless tobacco is difficult, but anyone can do it. Know the symptoms to expect when you stop. Common symptoms include: ? An intense craving for nicotine ? Anxiety, tension, restlessness, frustration, or impatience ? Difficulty concentrating ? Drowsiness or trouble sleeping, as well as bad dreams and nightmares ? Drowsiness and trouble sleeping ? Headaches ? Increased appetite and weight gain ? Irritability or depression How severe your symptoms are depends on how long you smoked and how many cigarettes you smoked each day. Feel ready to quit? ? First and foremost, set a quit date and quit completely on that day. Before your quit date, you may begin reducing your cigarette use. But remember, there is no safe level of cigarette smoking. ? List the reasons why you want to quit. Include both short- and long-term benefits. ? Identify the times you are most likely to smoke. For example, do you tend to smoke when feeling stressed or down? When out at night with friends? While drinking coffee or alcohol? When bored? While driving? Right after a meal or sex? During a work break? While watching TV or playing cards? When you are with other smokers? ? Let all of your friends, family, and co-workers know of your plan to stop smoking and your quit date. Just being aware that they know what you're going through can be helpful, especially when you are grumpy. ? Get rid of all your cigarettes just before the quit date, and clean out anything that smells like smoke, such as clothes and furniture. Make a plan about what you will do instead of smoking at those times when you are most likely to smoke. ? Be as specific as possible. For example, drink tea instead of coffee -- tea may not trigger the desire for a cigarette. Or, take a walk when you feel stressed. ? Remove ashtrays and cigarettes from the car. Place pretzels or hard candies there instead. Pretend-smoke with a straw. ? Find activities that focus your hands and mind but are not taxing or fattening. Computer games, solitaire, knitting, sewing, and crossword puzzles may help. ? If you normally smoke after eating, find other ways to end a meal. Play a tape or CD, eat a piece of fruit, get up and make a phone call, or take a walk (a good distraction that also esquivel calories). Make other changes in your lifestyle. ? Change your daily schedule and habits. Eat at different times or eat several small meals instead of three large ones. Sit in a different chair or even a different room. ? Satisfy your oral habits by eating celery or other low-calorie snack, chewing sugarless gum, or sucking on a cinnamon stick. ? Go to public places and restaurants where smoking is prohibited or restricted. ? Eat regular meals and don't eat too much candy or sweet things. ? Get more exercise. Take walks or ride a bike. Exercise helps relieve the urge to smoke. Set short-term quitting goals and reward yourself when you meet them. ? Every day, put the money you normally spend on cigarettes in a jar. Then buy something pleasurable after a period of time. ? Try not to think about all the days ahead you will need to avoid smoking. Take it one day at a time. ? Even one puff or one cigarette will make your desire for more cigarettes even stronger. However, it is normal to make mistakes. So even if you have one cigarette, you don't need to take the next one. Other tips to help you quit smoking and stick to it: ? Enroll in a smoking cessation program (hospitals, health departments, community centers, and work sites often offer programs). Learn about self-hypnosis or other techniques. ? Ask your health care provider about prescription medications that are safe and appropriate for you. ? Find out about nicotine patches, gum, and sprays. The [place] [employer]'s web site -- www.cancer.org -- is an excellent resource for smokers who are trying to quit, and the [employer] [place] [employer] can help some smokers kick the habit. Above all, don't get discouraged if you aren't able to quit smoking the first time. Nicotine addiction is a hard habit to break. Try something different next time. Develop new strategies, and try again. Many people take several attempts to finally kick the habit. Marijuana: Natural = Safe, Right? Marijuana is readily available to use in many states in the [place]. Understanding the possible risks of use is important to ensure the safety. No matter how you use marijuana (smoke it, eat it, or apply to your skin), it may cause problems with both short term and local company intermodal truck driver use How marijuana affects your BRAIN: Potential effects from Short Term Use Poor focus, memory and reaction time Difficulty with problem solving Hallucinations, paranoia, anxiety Potential effects from Life Insurance Underwriter Use Memory problems and trouble learning new things Depression, hallucinations, paranoia, anxiety, worsening PTSD symptoms addiction Brain. It is not safe to drive while on marijuana. It makes it hard to internal control specialist distance, concentrate, react quickly to signals and sounds, be alert and coordinated. If alcohol is combined, this risk is even higher! In regular users, some of the effects from long-term use may last for days or even weeks after stopping marijuana. How inhaling marijuana affects your LUNGS: Inhaling harmful chemicals Gases Small particles Carcinogens (toxins linked to cancer) Breathing problems similar to tobacco smokers Daily cough with mucus Difficulty breathing Lung infections (bronchitis, pneumonia) Lungs How marijuana affects your HEART: Increases risk of heart attack Within the first hour of smoking Increases heart rate 20?100% increase after smoking Increase lasts up to three hours Changes in heart rhythm Feels like your heart skips a beat, or is fluttering, or beating too fast or too slow Heart Is it SAFE to use marijuana with other medications? A combination that can be concerning is the use of opioids and/or benzodiazepines with marijuana. Opioids + Benzodiazepines + Marijuana: Drowsiness: All three can cause drowsiness. Reaction time: All three can reduce reaction time. Do not drive or operate machinery. Overdose: Opioids and Benzodiazepines can cause reduced breathing and in some cases, breathing can stop and a person can . Marijuana containing higher levels of THC may cause difficulty with thinking and memory and this could result in medication errors where extra doses of opioids, benzodiazepines, or other medications may be taken. What is the harm? Example of Opioids Morphine (MS Contin?, Shelley?) Oxycodone (Percocet?, OxyContin?) Hydrocodone (Vicodin?, [place]?) Fentanyl (Duragesic?) Methadone Heroin Example of Benzodiazepines Lorazepam (Ativan?) Diazepam (Valium?) Alprazolam (Xanax?) Clonazepam (Klonopin?) If you have specific questions about the safety of using marijuana with other medications, please contact your provider or pharmacist. Some marijuana users can become addicted! You can have problems with marijuana withdrawal. You may have withdrawal symptoms the day after you stop using. These can get worse 2 to 3 days after using and can take 1 to 2 weeks or longer to go away. Recovery and Treatment Contact your provider or health care team if you are having concerns about your marijuana use or to learn more about available treatment services. The marijuana plant is not an FDA-approved medicine: The U.S. Food and Drug Administration (FDA) has not approved the marijuana plant as a medication due to lack of studies on the risks and benefits. Marijuana contains over 100 chemical substances known as cannabinoids. Some of these, like tetrahydrocannabinol (THC), have mind altering effects and can be intoxicating. Cannabidiol (CBD), another cannabinoid, does not cause the same ?high? users of THC experience. THC has been studied for the treatment of several conditions, including nausea and increasing appetite. CBD is similarly being studied for a number of conditions, including childhood epilepsy and inflammation. What is different between the marijuana product I get from the marijuana shop and a prescription from the pharmacy? The right dose of any medicine is important. A specific dose of THC is approved to treat nausea, but high doses of THC may cause vomiting. The ingredients in a medicine must be measured and stay the same from one dose to the next. The marijuana plant contains unknown ingredients that change from plant to plant. This makes it hard to control the ?dose? of marijuana needed to treat a condition and use it in the same way we use other medicines. Future studies are ongoing to establish the role of the marijuana plant and the cannabinoids found in the plant for treatment of medical conditions. If you have questions about using a marijuana product for a medical condition, please discuss this with your medical provider to determine the most appropriate treatment for you. [place] Providers are not able to prescribe marijuana products. Information in this document was compiled by the [facility] Excellence in Substance Abuse treatment and Education (CESTE). It contains information from factsheets by the [employer] [place] [employer] Drug Abuse (www.drugabuse.gov) and presentation by Devante Quezada, Devante Baum, & Sherry Trujillo (2010) entitled ?What providers need to know about cannabis use in Veterans with mental health conditions: Research, policy, practice,? and an additional reference: Nga Johns M.D., Alonso Lowe, Ph.D., Robert Muñoz M.D., and Sarah Feliz, Ph.D: Adverse Effects of Marijuana. N Engl J Med 2014; 370:5378-4871, September 08, 2013 DOI: 10.1056/[id number]. [facility] Academic Detailing Service Coding Level of Care Code Est Pt Prev Care 40-64y(65987) Diagnoses Encounter for general adult medical examination without abnormal findings Z00.00 Marijuana smoker F12.90 Simple chronic bronchitis J41.0 COPD type: chronic bronchitis Chronic bronchitis type: simple Moderate episode of recurrent major depressive disorder F33.1 Major depression episode severity: moderate PIETRO (generalized anxiety disorder) F41.1 Morbid (severe) obesity due to excess calories E66.01 Mixed hyperlipidemia E78.2 Hyperlipidemia type: mixed hyperlipidemia Personal history of tobacco use Z87.891 Laboratory exam ordered as part of routine general medical examination Z00.00 Encounter for screening involving social determinants of health (SDoH) Z13.9 Screen for colon cancer Z12.11 Cervical cancer screening Z12.4 Environmental allergies Z91.09 Polycythemia D75.1 Additional Codes PIETRO-7 Assessment Billing - PIETRO-7 Assessment Tool: PIETRO-7 Assessment 65397 ([id number]) Vital Signs *Quality* - CPT code: 37435 - 4-10 Minutes ([id number]) Vital Signs *Quality* - Advance Care Planning discussion: Exists, not on file ([id number]) Vital Signs *Quality* - Time spent: 1-15 minutes, not on file ([id number]) Vital Signs *Quality* - Did not discuss due to Cultural/Spiritual beliefs: Yes ([id number])
[2023-08-05 08:00] VITALS: BP 133/68; PULSE 76; RESP 13; O2SAT 95; BMI 53.4
== END 2023-08-05 09:35 | disposition home or self-care (01) ==
PROVIDERS: PCP Nurse Practitioner Family; Visit Provider Nurse Practitioner Family
DX: Z00.00 Encounter for general adult medical examination without abnormal findings (principal)
CPT/HCPCS: 1124F; 99396

== ENCOUNTER 2023-08-05 08:58 | Outpatient (REF) | payer MEDICARE, MEDICAID, SELFPAY ==
[2023-08-05 11:47] LABS: Hematocrit 48.5 % (37.0-47.0); Hemoglobin 15.8 g/dl (12.0-16.0); Imm Gran Abs Auto 0.03 X10*3/uL (0.00-0.03); Imm Gran Pct Auto 0.5 % (0.0-0.4); Lymphocytes Absolute Auto 1.6 X10*3/uL (1.2-4.9); Lymphocytes Percent Auto 27.1 % (20-40); MANUAL DIFF FLAG SCAN; Mean Corpuscular Hemoglobin 28.8 pg (27.0-33.0); Mean Corpuscular Volume 88.3 fL (80.0-98.0); Monocytes Absolute Auto 0.5 X10*3/uL (0.1-1.2); Neutrophils Absolute Auto 3.6 x10*3/uL (2.0-8.3); PLT CLUMP 1; Red Blood Count 5.49 X10*6/uL (4.20-5.50); SCAN SMEAR FLAG 1
[2023-08-05 11:48] LABS: Platelet Count 198 X10*3/uL (160-400); White Blood Count 5.8 X10*3/uL (4.8-10.8)
[2023-08-05 11:52] LABS: Estimated Average Glucose 105 mg/dL; Hemoglobin A1c % 5.3 % (<6.0)
[2023-08-05 12:03] LABS: Creatinine Urine 97.81 mg/dL; Microalbum/Creatinine Ratio Ur 7.1 ug/mg cr (<30)
[2023-08-05 12:25] LABS: Alanine Aminotransferase 22 U/L (0-31); Albumin Level 4.3 g/dL (3.5-5.0); Alkaline Phosphatase 90 U/L (39-117); Anion Gap 14 (12-20); Aspartate Amino Transferase 18 U/L (5-31); Bilirubin Total 0.4 mg/dL (0.0-1.0); Blood Urea Nitrogen 19 mg/dL (9-16); C Reactive Protein 0.35 mg/dL (< or = 0.50); Calcium 9.4 mg/dL (8.4-10.2); Carbon Dioxide 22 mmol/L (22-29); Chloride 106 mmol/L (96-108); Cholesterol 252 mg/dL (<200); Estimated Glomerular Filt Rate > 60; Glucose Random 107 mg/dL (60-115); HDL Cholesterol 39 mg/dL (>40); Iron 62 mcg/dL (30-160); LDL Cholesterol Calculated 163 mg/dL (<100); Magnesium 2.2 mg/dL (1.6-2.6); Percent Iron Saturation 18 % (15-50); Phosphorus 2.8 mg/dL (2.7-4.5); Potassium 3.9 mmol/L (3.3-5.1); Sodium 138 mmol/L (135-145); Total Iron Binding Capacity 349 mcg/dL (228-428); Total Protein 7.8 g/dL (6.5-8.0); Triglycerides 254 mg/dL (<150); Unsaturated Iron Binding 287 ug/dL
[2023-08-05 12:33] LABS: Ferritin 61 ng/mL (10-250); Insulin 8 uU/mL (2-29); TSH reflex Free T4 0.93 uIU/mL (0.32-4.0); Vitamin D 25-OH Total 36.6 ng/mL (>30)
[2023-08-05 12:44] LABS: Folate 13.3 ng/mL (> or = 4.0); Vitamin B12 691 pg/mL (200-900)
[2023-08-07 08:48] LABS: LDL Cholesterol Direct 149 mg/dL (<100)
[2023-08-07 23:49] LABS: Class Alternaria alternata 0; Class Aspergillus fumigatus 0; Class Bermuda Grass 0; Class Birch 0; Class Cat Dander 0; Class Cladosporium herbarum 0; Class Cockroach 0; Class Common Ragweed 0; Class Cottonwood 0; Class Derm. pterony 0; Class Dermatophagoides farinae 0; Class Dog Dander 0; Class Elm 0; Class Maple Box Elder 0; Class Mountain Cedar 0; Class Mouse Urine Protein 0; Class Mugwort 0; Class Oak 0; Class Penicillium crysogenum 0; Class Rough Pigweed 0; Class Sheep Sorrel 0; Class Sycamore 0; Class Timothy Grass 0; Class Walnut Tree 0; Class White Ash 0; Class White Mulberry 0; D001 IgE D pteronyssinus <0.10 kU/L; D002 - IgE D farinae <0.10 kU/L; E001 - IgE Cat Dander <0.10 kU/L; E005 - IgE Dog Dander <0.10 kU/L; E072-IgE Mouse Urine <0.10 kU/L; G002 IgE Bermuda Grass <0.10 kU/L; G006 - IgE Timothy Grass <0.10 kU/L; I006-IgE Cockroach, German <0.10 kU/L; Immunoglobulin E 12 kU/L (<OR=114); M001 IgE Penicillium chrysogen <0.10 kU/L; M002 - IgE Cladosporium herbar <0.10 kU/L; M003 - IgE Aspergillus fumigat <0.10 kU/L; M006 - IgE Alternaria alternat <0.10 kU/L; T001 IgE Maple/Box Elder <0.10 kU/L; T003 IgE Common Silver Birch <0.10 kU/L; T006 - IgE Cedar, Mountain <0.10 kU/L; T007 - IgE Oak, White <0.10 kU/L; T008 IgE Elm, American <0.10 kU/L; T010 - IgE Walnut <0.10 kU/L; T011 - IgE Maple Leaf Sycamore <0.10 kU/L; T014 - IgE Cottonwood <0.10 kU/L; T015 - IgE Ash, White <0.10 kU/L; T070 - IgE White Mulberry <0.10 kU/L; W001 - IgE Ragweed, Short <0.10 kU/L; W006 - IgE Mugwort <0.10 kU/L; W014 IgE Pigweed, Common <0.10 kU/L; W018 IgE Sheep Sorrel <0.10 kU/L
[2023-08-10 00:49] LABS: VITAMIN D (1,25 OH) D3 57 pg/mL; Vit D (1,25-Dihydroxy) Total 57 pg/mL (18-72); Vitamin D (1,25 OH) D2 <8 pg/mL
[2023-08-10 15:48] LABS: Vitamin A 57 mcg/dL (38-98)
[2023-08-11 15:32] LABS: Vitamin B1 34 nmol/L (8-30)
== END 2023-08-05 08:59 | disposition home or self-care (01) ==
LOC: HO.WFDLDS 08:58
PROVIDERS: Nurse Practitioner Family; Physician Assistant; Visit Provider Nurse Practitioner Family
DX: Z91.09 Other allergy status, other than to drugs and biological substances (principal); E66.01 Morbid (severe) obesity due to excess calories; Z87.891 Personal history of nicotine dependence; J44.9 Chronic obstructive pulmonary disease, unspecified; F41.8 Other specified anxiety disorders; F12.90 Cannabis use, unspecified, uncomplicated
CPT/HCPCS: 36415; 80053; 80061; 82043; 82306; 82570; 82607; 82652; 82728; 82746; 82785; 83036; 83525; 83540; 83721; 83735; 84100; 84425; 84443; 84590; 85025; 85027; 86003; 86140

== ENCOUNTER 2023-11-10 10:40 | Outpatient (AMB) | payer MEDICARE, MEDICAID, SELFPAY ==
[2023-11-10 10:45] VITALS: BP 122/70; PULSE 78; O2SAT 96; BMI 52.8
--- NOTE | 2023-11-10 10:45 | MHC.OFFVIS ---
Vital Signs 11/10/23 10:45 Height 5 ft 5 in Weight 317 lb 2 oz BMI 52.8 BP 122/70 Blood Pressure Location Rt radial Position Sitting Pulse 78 Pulse Source Pulse Oximeter Pulse Oximetry (%) 96 Oxygen Delivery Method Room Air Intake Visit Reasons: Cough Allergies venlafaxine [From Effexor] Allergy (Unknown, Verified 11/10/23 10:52) Unknown HPI HPI Cough: Details: Paula is a pleasant 53 year old female, former tobacco smoker, recently quit last week, with 30 pack year history, everyday marijuana vaper with underlying history of asthma and environmental allergies. She presented last year with reports of progressively worsening dyspnea on exertion, wheezing and dry cough since having COVID November 2021. She has been using singulair, Atrovent and albuterol with suboptimal control. She was sent for PFT and chest CT however did not keep these appointments. She reports significant life changes since the last visit, now homeless and has had difficulties keeping appointments due to lack of transportation. [facility] She has been using levalbuterol and atrovent with suboptimal effect. She avoids using albuterol due to tremors and palpitations. She denies any visits to urgent care or hospitalizations since last visit. She newly reports loud snoring, daytime fatigue, nonrestorative sleep and paroxysmal nocturnal dyspnea. Denies prior sleep study. [facility] Medical History Polycythemia Surgical History Hx of spinal fusion History of extraction of renal calculus H/O right knee surgery History of cholecystectomy Family History (Updated 08/05/23 @ 08:12 by Zena العراقي CMA) Father Diabetes Heart disease Alzheimer disease Mental health disorder Substance use disorder Mother Diabetes Stroke Brain tumor H/O bilateral mastectomy Mental health disorder Substance use disorder Maternal Grandmother Lung cancer Brother Hypertension Obesity Diabetes Family/Other Polycythemia Diabetes Social History (Updated 08/05/23 @ 08:14 by Zena العراقي CMA) Household Members: None Housing: House Are you a primary medicare specialist to a significant other at home: No Do you presently have visiting nurse or other home services: No 75 years or older and lives alone: No Alcohol intake: never Patient Tobacco Use Status: Current everyday Tobacco user Tobacco use type: Cigarette Cigarette Packs Per Day: 1 Cigarettes Per Day: 20 Years Smoked: 1 e-Cigarette/Vaping Use: Never Used Second Hand Smoke Exposure: No Substance Use Type: Marijuana service: No Current occupational status: disabled 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 Sexual orientation: Straight/Heterosexual Gender identity: Female Cognitive needs: No Hearing needs: No Vision needs: Yes Review of Systems Const Denies chills, Denies excessive sweating, Denies fever(s), Denies headache(s) and Denies night sweats Eyes Denies dry eyes, Denies irritation and Denies itchy eyes ENT Reports Normal hearing present, Denies headache(s), Denies nasal congestion, Denies nasal discharge and Denies sore throat Card Denies chest pain, Denies chest pain at rest, Denies chest pain with activity, Denies claudication, Denies leg edema and Denies orthopnea Resp Denies chest congestion, Denies excessive phlegm production, Denies pain on inspiration, Denies pain with cough and Denies stridor Neuro Reports Normal hearing present and Denies headache(s) Endo Denies excessive sweating Jasmeet/Lymph Denies lymphadenopathy Aller/Immun Denies itchy eyes and Denies seasonal rhinorrhea Physical Exam Vital Signs: Last Vital Signs Pulse 78 11/10/23 10:45 BP 122/70 11/10/23 10:45 Pulse Ox 96 11/10/23 10:45 Oxygen Delivery Method Room Air 11/10/23 10:45 BMI result Body Mass Index 52.8 Const General: cooperative, healthy appearing, comfortable, no acute distress, well developed and alert Nutritional Appearance: obese Orientation/consciousness: patient oriented x3 Limitations: no limitations HEENT Head: Yes normal to inspection, Yes normocephalic and Yes atraumatic Ears: hearing grossly normal bilaterally and external ears normal Eyes General: appearance normal, both eyes and all related structures Eyelids: Yes eyelids normal Sclerae: sclerae normal EOM: EOMs intact bilaterally Neck Neck: Yes normal visual inspection and Yes no lymphadenopathy Lymphatic: no lymphadenopathy noted Chest Chest palpation & inspection: normal inspection of the chest Resp Effort & Inspection: normal respiratory effort, able to speak in complete sentences, no audible wheezes, no cough, no stridor, not tachypneic, no tripod positioning and no use of accessory muscles Auscultation: clear to auscultation bilaterally Cardio Jugular venous distension: no JVD Rate: regular rate Rhythm: regular rhythm Skin Other: warm, dry General skin exam: no rashes or lesions noted Neuro General: patient oriented x3 Cranial nerves: Yes Normal hearing present Cognition (Neuro): normal cognition Gait exam (Neuro): Normal gait present Extrem General: Yes normal to inspection, Yes capillary refill normal, Yes no clubbing, cyanosis or edema and Yes no pedal edema Psych Appearance: grossly normal and well kempt Speech and movement: Normal speech and movement present and Clear speech present Affect: normal affect Attitude: cooperative Thought process: Normal thought process present Thought content: Normal thought content present Insight: Good insight present (Psych) Judgement: Good judgement present (Psych) Assessment & Plan Assessment & Plan (1) Environmental allergies: Comment: use otc meds prn Code(s): Z91.09 - Other allergy status, other than to drugs and biological substances Category: Medical (2) COPD (chronic obstructive pulmonary disease): Comment: without exacerbation, managed by [facility] [place] Pulm cont inhalers Code(s): J44.9 - Chronic obstructive pulmonary disease, unspecified Category: Medical Qualifiers: COPD type: chronic bronchitis Chronic bronchitis type: simple Qualified Code(s): J41.0 - Simple chronic bronchitis (3) Cough: Code(s): R05.9 - Cough, unspecified Category: Medical (4) Shortness of breath: Code(s): R06.02 - Shortness of breath Category: Medical (5) Morbid obesity: Code(s): E66.01 - Morbid (severe) obesity due to excess calories Category: Medical (6) Personal history of tobacco use: Comment: smoking cessation edu provided Code(s): Z87.891 - Personal history of nicotine dependence Category: Social Hx (7) Non-restorative sleep: Code(s): G47.8 - Other sleep disorders Category: Medical Plan Paula's symptoms are likely multifactorial with contribution from underlying pulmonary and obesity/deconditioning etiologies. Will trial Breo in place of Atrovent. Discussed importance of good oral hygiene. She is aware to call if unable to obtain prescription. She reports seasonal allergies, will send for RAST today to assess for an allergic component. Patient in agreement of obtaining chest CT given smoking history, however would like this to be scheduled in two months due to transportation and current living situation. She would like to hold of on PFT at this time. She is interested in a home sleep study given symptoms suggestive of ROBERTO will enter this. She did meet with community navigator today to discuss options to sustain a better living situation. All questions were answered and patient is in agreement of plan. Will follow up after to review results and response to Breo. Orders: Orders Immunoglobulin E Today Z91.09 - Other allergy status, other than to drugs and biological substances Resp Allergy Profile Region I Today Z91.09 - Other allergy status, other than to drugs and biological substances Complete Blood Count Auto Diff Today Z91.09 - Other allergy status, other than to drugs and biological substances RT home sleep study Today G47.8 - Other sleep disorders CT chest wo IV con 2 Months Z87.891 - Personal history of nicotine dependence Medications: New fluticasone furoate-vilanterol 100-25 mcg/dose (Breo Ellipta) 1 inh inhalation DAILY 60 ea 5RF Coding Level of Care Code Est Pt Level 4 (92311) Diagnoses Environmental allergies Z91.09 Simple chronic bronchitis J41.0 COPD type: chronic bronchitis Chronic bronchitis type: simple Cough R05.9 Shortness of breath R06.02 Morbid obesity E66.01 Personal history of tobacco use Z87.891 Non-restorative sleep G47.8
== END 2023-11-10 11:37 | disposition home or self-care (01) ==
PROVIDERS: PCP Nurse Practitioner Family; Visit Provider Nurse Practitioner Family
DX: Z91.09 Other allergy status, other than to drugs and biological substances (principal); J41.0 Simple chronic bronchitis; E66.01 Morbid (severe) obesity due to excess calories; Z68.43 Body mass index [BMI] 50.0-59.9, adult; R06.02 Shortness of breath; Z87.891 Personal history of nicotine dependence; G47.8 Other sleep disorders
CPT/HCPCS: 99214

== ENCOUNTER → 2023-11-10 10:40 | Outpatient (BNVA) | payer MEDICARE, MEDICAID, SELFPAY | PROVIDERS: PCP Nurse Practitioner Family; Visit Provider Nurse Practitioner Family | DX: J41.0 Simple chronic bronchitis (principal); R06.00 Dyspnea, unspecified; R06.02 Shortness of breath; E66.01 Morbid (severe) obesity due to excess calories; G47.8 Other sleep disorders; F12.90 Cannabis use, unspecified, uncomplicated; Z91.09 Other allergy status, other than to drugs and biological substances; Z87.891 Personal history of nicotine dependence | CPT/HCPCS: 99212 ==

== ENCOUNTER 2023-12-01 11:59 | Outpatient (AMB) | payer MEDICARE, MEDICAID, SELFPAY ==
--- NOTE | 2023-12-01 12:06 | MHC.PC.OV ---
Vital Signs 12/01/23 12:14 Height 5 ft 5 in Weight 312 lb 6 oz BMI 52.0 BP 128/80 Blood Pressure Location Rt brachial Position Sitting Respiration 16 Pulse 79 Pulse Source Pulse Oximeter Temp 97.9 F Temp Source Oral Pulse Oximetry (%) 94 Oxygen Delivery Method Room Air Intake Visit Reasons: est/weightloss/bump on finger Intake Note: patient here for weight and bump on finger Conservation Specialist Required: No Is last menstrual period known: Yes Last menstrual period: 11/24/23 Post menopausal: No Patient : No Allergies venlafaxine [From Effexor] Allergy (Unknown, Verified 12/01/23 12:28) Unknown Medication List - Last Reconciled 12/01/23 by Erick Fernandez CNP acetaminophen (Tylenol) 325 mg PO QID PRN albuterol sulfate 90 mcg/actuation (Ventolin HFA) 2 puffs PO Q4-6H PRN albuterol sulfate 1.25 mg (3 mL) inhalation Q4-6H PRN atorvastatin 40 mg PO BEDTIME clonazepam mg PO flunisolide 1 spray intranasal BID 1 month fluoxetine 40 mg PO DAILY fluticasone furoate-vilanterol 100-25 mcg/dose (Breo Ellipta) 1 inh inhalation DAILY gabapentin 300 mg PO TID 30 days ibuprofen 800 mg PO Q8H ipratropium bromide 17 mcg/actuation (Atrovent HFA) 2 puffs inhalation QID lamotrigine 200 mg PO DAILY levalbuterol tartrate 45 mcg/actuation 1 puff inhalation Q4-6H PRN trazodone mg PO Tobacco use date assessed: 12/01/23 Dental Screening Dental Screen Date: 08/05/23 HPI HPI Comments History of Present Illness Details 53-year-old female, accompanied by her sister, presents for weight management and a bump Her PCP is Colleen Cha She notes that she has been making healthy dietary choices, including low carbs and walks daily. However, she has not been able to lose weight. She states that she needs right hip and bilat knee surgery but was told by [facility] her weight has to be at least 250 lb to be eligible for surgery. She does not want to bariatric surgery. She requests a GLP1 for weight management He also reports a painful bump immediately above the DIP joint of her left 3rd digit. She notes that the bumps started 8 months ago and has progressively increased in size. She denies trauma. No fever, chills, body aches, fatigue PFSH Medical History Polycythemia Surgical History Hx of spinal fusion History of extraction of renal calculus H/O right knee surgery History of cholecystectomy Family History (Updated 08/05/23 @ 08:12 by Zena العراقي CMA) Father Diabetes Heart disease Alzheimer disease Mental health disorder Substance use disorder Mother Diabetes Stroke Brain tumor H/O bilateral mastectomy Mental health disorder Substance use disorder Maternal Grandmother Lung cancer Brother Hypertension Obesity Diabetes Family/Other Polycythemia Diabetes Social History (Updated 08/05/23 @ 08:14 by Zena العراقي CMA) Household Members: None Housing: House Are you a primary personal care assistant to a significant other at home: No Do you presently have visiting nurse or other home services: No Alcohol intake: never Patient Tobacco Use Status: Current everyday Tobacco user Tobacco use type: Cigarette Cigarette Packs Per Day: 1 Cigarettes Per Day: 20 Years Smoked: 1 e-Cigarette/Vaping Use: Never Used Second Hand Smoke Exposure: No Substance Use Type: Marijuana service: No Current occupational status: disabled 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 Yaron Joseph, Charlotte Lang, Thomas Mckay and colleagues, with an educational saurabh from [employer]. Review of Systems Const Details: Const Denies chills, Denies fatigue, Denies fever(s), Denies headache(s) and Denies weakness ENT Denies dizziness and Denies headache(s) Card Denies chest pain, Denies lightheadedness, Denies dyspnea and Denies other (Palpitations) Resp Denies cough, Denies dyspnea, Denies wheezing and Denies other ( shortness of breath) GI Denies abdominal pain, Denies melena, Denies hematochezia, Denies change in bowel habits, Denies dyspepsia and Denies nausea Denies hematuria and Denies dysuria Musc Denies abnormal gait, Denies myalgias, Denies arthralgias, Denies numbness and Denies tingling Skin/Breast Reports as per HPI Neuro Denies abnormal gait, Denies dizziness, Denies headache(s), Denies memory loss, Denies numbness, Denies Sensory deficit (Neuro), Denies tingling and Denies weakness Endo Denies cold intolerance, Denies fatigue, Denies heat intolerance, Denies polydipsia and Denies polyuria Aller/Immun Denies wheezing Physical exam (Primary Care) Vital Signs: Last Vital Signs Temp 97.9 F 12/01/23 12:14 Pulse 79 12/01/23 12:14 Resp 16 12/01/23 12:14 BP 128/80 12/01/23 12:14 Pulse Ox 94 12/01/23 12:14 Oxygen Delivery Method Room Air 12/01/23 12:14 BMI result Body Mass Index 52.0 Tobacco/Smoking Status: Tobacco use Status Tobacco use date assessed 12/01/23 12/01/23 12:15 Patient Tobacco Use Status Current everyday Tobacco 12/01/23 12:08 Tobacco use type Cigarette 12/01/23 12:08 e-Cigarette/Vaping Use Never Used 12/01/23 12:08 Thrive Assessment: Date of Thrive Assessment Date Thrive assessed 08/05/23 12/01/23 12:08 Const Other: General: no acute distress and well developed Nutritional Appearance: well nourished Orientation/consciousness: patient oriented x3 [facility] Head: Yes normocephalic and Yes atraumatic Eyes General: appearance normal, both eyes and all related structures Pupils: Equal, round and reactive pupils present EOM: EOMs intact bilaterally Resp Effort & Inspection: normal respiratory effort Auscultation: clear to auscultation bilaterally Cardio Rate: regular rate Rhythm: regular rhythm Heart sounds: S1 normal heart sound present, S2 normal heart sound present, no gallops, no murmurs and no rubs GI Palpation (GI): No Abdominal aortic bruit present, Soft to palpation, nontender, No hepatosplenomegaly present and No Rebound tenderness present Auscultation: normal bowel sounds General: Yes no CVA tenderness Back/Spine/Pelvis Back: no CVA tenderness Cervical Spine: cervical ROM normal and No Cervical spine tenderness Thoracic/Lumbar Spine: thoraco-lumbar ROM normal, No pain with thoraco-lumbar ROM, No thoracic spinal tenderness and No lumbar spinal tenderness Extrem General: Yes normal to inspection, No edema and No calf tenderness Skin General: warm and dry. Normal skin color. Normal skin turgor Lesions: Pea-sized, soft lump noted above the PIP joint of the left 3rd digit; no overt infection Rashes: no rashes Trauma: no lacerations or abrasions Wounds: no wounds Nails: normal Neuro General: patient oriented x3, gait normal and no focal neuro deficit Cranial nerves: Yes Equal, round and reactive pupils present Cognition (Neuro): normal cognition Gait exam (Neuro): Normal gait present Sensory Exam: No Sensory deficit (Neuro) Psych Appearance: grossly normal Affect: normal affect Attitude: cooperative Thought process: Normal thought process present Assessment and Plan Assessment & Plan (1) Morbid obesity with BMI of 50.0-59.9, adult: Code(s): E66.01 - Morbid (severe) obesity due to excess calories; Z68.43 - Body mass index [BMI] 50.0-59.9, adult Plan: She currently weighs 312 lb, BMI is 52.0 Semaglutide ordered. Advised to use as prescribed. Instructed on the risks, benefits, and potential adverse reactions of the medication Healthy diet and routine exercise encouraged Referred to [facility] dietitian Advised to sign a consent for her PCP to obtain record from [facility] Follow-up with PCP in 1 month or sooner with symptoms or concerns Verbalized understanding and agreed with the treatment plan (2) Lesion of finger: Code(s): L98.9 - Disorder of the skin and subcutaneous tissue, unspecified Plan: Pea-sized, soft lump noted above the PIP joint of the left 3rd digit; no overt infection; no pustular head Warm compresses encouraged Encouraged to clean wound and apply Band-Aid daily if spontaneously drained Follow-up with PCP as needed Verbalized understanding and agreed with the treatment plan Orders: Referrals Nutrition/Dietitian Referral E66.01 - Morbid (severe) obesity due to excess calories, Z68.43 - Body mass index [BMI] 50.0-59.9, adult Medications: New semaglutide (weight loss) administer weeks 1 through 4 of therapy 0.25 mg (0.5 mL) subcut QWEEK 2 mL 1RF Coding Level of Care Code Est Pt Level 4 (84165) Complex EM visit Add On G2211 Diagnoses Morbid obesity with BMI of 50.0-59.9, adult E66.01; Z68.43 Lesion of finger L98.9
[2023-12-01 12:14] VITALS: BP 128/80; PULSE 79; RESP 16; TEMP 36.6; O2SAT 94; BMI 52.0
== END 2023-12-01 13:07 | disposition home or self-care (01) ==
PROVIDERS: PCP Nurse Practitioner Family; Visit Provider Nurse Practitioner Family
DX: E66.01 Morbid (severe) obesity due to excess calories (principal); Z68.43 Body mass index [BMI] 50.0-59.9, adult; L98.9 Disorder of the skin and subcutaneous tissue, unspecified
CPT/HCPCS: 99214; G2211

== ENCOUNTER 2023-12-01 12:56 | Outpatient (REF) | payer MEDICARE, MEDICAID, SELFPAY ==
[2023-12-01 14:33] LABS: MANUAL DIFF FLAG NO
[2023-12-01 14:44] LABS: Basophils Percent Auto 0.4 % (0-2); Eosinophils Absolute Auto 0.1 X10*3/uL (0.0-0.4); Eosinophils Percent Auto 0.9 % (0-4); Hematocrit 44.9 % (37.0-47.0); Hemoglobin 14.7 g/dl (12.0-16.0); Imm Gran Abs Auto 0.01 X10*3/uL (0.00-0.03); Imm Gran Pct Auto 0.1 % (0.0-0.4); Lymphocytes Absolute Auto 1.9 X10*3/uL (1.2-4.9); Lymphocytes Percent Auto 24.4 % (20-40); Mean Corpuscular HGB Conc 32.7 g/dl (31.0-35.0); Mean Corpuscular Hemoglobin 28.1 pg (27.0-33.0); Mean Corpuscular Volume 85.9 fL (80.0-98.0); Mean Platelet Volume 10.1 fL (9.4-12.3); Monocytes Absolute Auto 0.6 X10*3/uL (0.1-1.2); Monocytes Percent Auto 7.3 % (2-11); Neutrophils Absolute Auto 5.1 x10*3/uL (2.0-8.3); Neutrophils Percent Auto 66.9 % (45-73); Platelet Count 247 X10*3/uL (160-400); Red Blood Count 5.23 X10*6/uL (4.20-5.50); Red Cell Distribution Width 12.7 % (11.0-16.0); White Blood Count 7.6 X10*3/uL (4.8-10.8)
[2023-12-01 14:49] LABS: Estimated Average Glucose 105 mg/dL; Hemoglobin A1c % 5.3 % (<6.0)
[2023-12-01 15:19] LABS: Alanine Aminotransferase 26 U/L (0-31); Albumin Level 4.1 g/dL (3.5-5.0); Alkaline Phosphatase 88 U/L (39-117); Anion Gap 15 (12-20); Aspartate Amino Transferase 26 U/L (5-31); Bilirubin Total 0.5 mg/dL (0.0-1.0); Blood Urea Nitrogen 14 mg/dL (9-16); Calcium 9.8 mg/dL (8.4-10.2); Carbon Dioxide 22 mmol/L (22-29); Chloride 107 mmol/L (96-108); Estimated Glomerular Filt Rate > 60; Glucose Random 88 mg/dL (60-115); Potassium 3.7 mmol/L (3.3-5.1); Sodium 140 mmol/L (135-145); Total Protein 7.3 g/dL (6.5-8.0)
[2023-12-01 15:24] LABS: Alanine Aminotransferase 27 U/L (0-31); Albumin Level 4.2 g/dL (3.5-5.0); Alkaline Phosphatase 88 U/L (39-117); Anion Gap 14 (12-20); Aspartate Amino Transferase 25 U/L (5-31); Bilirubin Total 0.6 mg/dL (0.0-1.0); Blood Urea Nitrogen 15 mg/dL (9-16); Calcium 9.7 mg/dL (8.4-10.2); Carbon Dioxide 22 mmol/L (22-29); Chloride 107 mmol/L (96-108); Cholesterol 208 mg/dL (<200); Estimated Glomerular Filt Rate > 60; Glucose Fasting 85 mg/dL (60-99); HDL Cholesterol 38 mg/dL (>40); Iron 80 mcg/dL (30-160); LDL Cholesterol Calculated 137 mg/dL (<100); Percent Iron Saturation 25 % (15-50); Potassium 3.4 mmol/L (3.3-5.1); Sodium 140 mmol/L (135-145); Total Iron Binding Capacity 315 mcg/dL (228-428); Total Protein 7.4 g/dL (6.5-8.0); Triglycerides 166 mg/dL (<150); Unsaturated Iron Binding 235 ug/dL
[2023-12-01 15:37] LABS: TSH reflex Free T4 0.63 uIU/mL (0.32-4.0)
[2023-12-01 15:50] LABS: Folate 12.8 ng/mL (> or = 4.0); Vitamin B12 1181 pg/mL (200-900)
[2023-12-02 05:36] LABS: Parathyroid Hormone Intact 33.7 pg/mL (8.7-77.1)
[2023-12-02 20:43] LABS: Immunoglobulin E 15 kU/L (<OR=114)
[2023-12-03 20:18] LABS: Class Alternaria alternata 0; Class Aspergillus fumigatus 0; Class Bermuda Grass 0; Class Birch 0; Class Cat Dander 0; Class Cladosporium herbarum 0; Class Cockroach 0; Class Common Ragweed 0; Class Cottonwood 0; Class Derm. pterony 0; Class Dermatophagoides farinae 0; Class Dog Dander 0; Class Elm 0; Class Maple Box Elder 0; Class Mountain Cedar 0; Class Mouse Urine Protein 0; Class Mugwort 0; Class Oak 0; Class Penicillium crysogenum 0; Class Rough Pigweed 0; Class Sheep Sorrel 0; Class Sycamore 0; Class Timothy Grass 0; Class Walnut Tree 0; Class White Ash 0; Class White Mulberry 0; D001 IgE D pteronyssinus <0.10 kU/L; D002 - IgE D farinae <0.10 kU/L; E001 - IgE Cat Dander <0.10 kU/L; E005 - IgE Dog Dander <0.10 kU/L; E072-IgE Mouse Urine <0.10 kU/L; G002 IgE Bermuda Grass <0.10 kU/L; G006 - IgE Timothy Grass <0.10 kU/L; I006-IgE Cockroach, German <0.10 kU/L; Immunoglobulin E 16 kU/L (<OR=114); M001 IgE Penicillium chrysogen <0.10 kU/L; M002 - IgE Cladosporium herbar <0.10 kU/L; M003 - IgE Aspergillus fumigat <0.10 kU/L; M006 - IgE Alternaria alternat <0.10 kU/L; T001 IgE Maple/Box Elder <0.10 kU/L; T003 IgE Common Silver Birch <0.10 kU/L; T006 - IgE Cedar, Mountain <0.10 kU/L; T007 - IgE Oak, White <0.10 kU/L; T008 IgE Elm, American <0.10 kU/L; T010 - IgE Walnut <0.10 kU/L; T011 - IgE Maple Leaf Sycamore <0.10 kU/L; T014 - IgE Cottonwood <0.10 kU/L; T015 - IgE Ash, White <0.10 kU/L; T070 - IgE White Mulberry <0.10 kU/L; W001 - IgE Ragweed, Short <0.10 kU/L; W006 - IgE Mugwort <0.10 kU/L; W014 IgE Pigweed, Common <0.10 kU/L; W018 IgE Sheep Sorrel <0.10 kU/L
== END 2023-12-01 12:57 | disposition home or self-care (01) ==
LOC: HO.WFDLDS 12:56
PROVIDERS: Internal Medicine Medical Oncology; Physician Assistant; Referring Provider Nurse Practitioner Family; Visit Provider Nurse Practitioner Family
DX: Z00.00 Encounter for general adult medical examination without abnormal findings (principal); D75.1 Secondary polycythemia; E66.01 Morbid (severe) obesity due to excess calories; Z87.891 Personal history of nicotine dependence; J44.9 Chronic obstructive pulmonary disease, unspecified; F41.8 Other specified anxiety disorders; F12.90 Cannabis use, unspecified, uncomplicated; E78.5 Hyperlipidemia, unspecified; F41.1 Generalized anxiety disorder; E78.2 Mixed hyperlipidemia; Z91.09 Other allergy status, other than to drugs and biological substances; Z13.1 Encounter for screening for diabetes mellitus
CPT/HCPCS: 36415; 80053; 80061; 82607; 82746; 82785; 83036; 83540; 83970; 84443; 84630; 85025; 86003

== ENCOUNTER 2023-12-30 15:02 | Outpatient (AMB) | payer MEDICARE, MEDICAID, SELFPAY ==
[2023-12-30 15:05] VITALS: BMI 52.2
--- NOTE | 2023-12-30 15:05 | MHC.OFFVIS ---
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: International Sales Manager Present Information Interpreted: clinical only Lap Winder: Lap Winder Present Allergies venlafaxine [From Effexor] Allergy (Unknown, Verified 12/30/23 15:11) Unknown Medication List - Last Reconciled 12/30/23 by Shonna Smith CNM acetaminophen (Tylenol) 325 mg PO QID PRN albuterol sulfate 90 mcg/actuation (Ventolin HFA) 2 puffs PO Q4-6H PRN albuterol sulfate 1.25 mg (3 mL) inhalation Q4-6H PRN atorvastatin 40 mg PO BEDTIME flunisolide 1 spray intranasal BID 1 month fluoxetine 40 mg PO DAILY fluticasone furoate-vilanterol 100-25 mcg/dose (Breo Ellipta) 1 inh inhalation DAILY gabapentin 300 mg PO TID 30 days ibuprofen 800 mg PO Q8H ipratropium bromide 17 mcg/actuation (Atrovent HFA) 2 puffs inhalation QID lamotrigine 200 mg PO DAILY levalbuterol tartrate 45 mcg/actuation 1 puff PO Q4-6H PRN semaglutide (weight loss) 0.25 mg (0.5 mL) subcut QWEEK trazodone mg PO Is last menstrual period known: Yes Last menstrual period: 12/21/23 HPI HPI 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 She has never had an abnormal smear she has no children she had not been sexually active for a long time though she did have sex 1 time about a month ago so she would like to get checked for STIs. She did have some dysuria after that but it went away. She has had of very difficult 3 years she took care her mother and father in their last year's as well as 1 of her step parents. All 3 are now . She moved out of her apartment that she had for 28 years to care for her parents in their home and then because of unforeseen circumstances the house had to be sold and she is essentially homeless but she has been staying with her sister recently.. She has been getting lots of hot flashes she has been taking something [id number] like Estroven and says it helps her. She was on something to help her lose weight but then the insurance company denied it. She has made calls to insurance companies to see which medication they were covered help with weight loss but has not been able to get a response back she had to reschedule her appointment with primary care in [place] because she was still awaiting the insurance information however she has got her an appointment 1 way or the other on Thursday with Mary Meade. She has bad hips and bad knees but she can not have either surgery until she loses weight. She did discuss bariatric surgery last year but she was afraid that until she figures out a way to help control her eating she would probably end up gaining the weight back. 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 She never had an abnormal Pap smear [facility] Medical History Polycythemia Surgical History Hx of spinal fusion History of extraction of renal calculus H/O right knee surgery History of cholecystectomy Family History Father Diabetes Heart disease Alzheimer disease Mental health disorder Substance use disorder Mother Diabetes Stroke Brain tumor H/O bilateral mastectomy Mental health disorder Substance use disorder Maternal Grandmother Lung cancer Brother Hypertension Obesity Diabetes Family/Other Polycythemia Diabetes Social History Household Members: None Housing: House Are you a primary housekeeper caregiver to a significant other at home: No Do you presently have visiting nurse or other home services: No 75 years or older and lives alone: No Alcohol intake: never Patient Tobacco Use Status: Current everyday Tobacco user Tobacco use type: Cigarette Cigarette Packs Per Day: 1 Cigarettes Per Day: 20 Years Smoked: 1 e-Cigarette/Vaping Use: Never Used Second Hand Smoke Exposure: No Substance Use Type: Marijuana service: No Current occupational status: disabled 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 Pelvic exam within normal limits though details of uterus and adnexa limited by habitus no tenderness or organomegaly appreciated however good tone with Kegel. Clear healthy normal appearing mucosa and structures cervix appeared nulliparous smooth and healthy. General: healthy appearing, comfortable, no acute distress, well developed and alert Nutritional Appearance: average body habitus and obese Orientation/consciousness: patient oriented x3 Limitations: no limitations HEENT Head: Yes normocephalic Neck Neck: Yes normal visual inspection Chest Chest palpation & inspection: normal inspection of the chest Breast/axilla inspection: normal inspection of the breasts and normal inspection of the axillae Breast/axilla palpation: normal palpation of the breasts and normal palpation of the axillae Resp Effort & Inspection: normal respiratory effort GI Inspection: Yes normal to inspection, No Abdominal wall edema and No distended Palpation (GI): Soft to palpation and nontender General: Yes bladder normal to palpation External Female Exam: normal external appearance and normal appearance of the urethra Speculum Exam - Vagina: normal appearance of the vagina, normal palpation and normal vaginal discharge Speculum Exam - Cervix: normal appearance of the cervix, normal palpation and nontender Bimanual exam- vagina & uterus: normal bimanual exam, normal palpation, bladder normal to palpation, consistency normal, normal palpation, uterine mobility normal, No Cervical tenderness present, non-tender and no cervical motion tenderness Bimanual Exam- Adnexa, other: normal and No adnexal tenderness Neuro General: patient oriented x3 Assessment & Plan Assessment & Plan (1) Cervical cancer screening: Comment: refer to FINISHING ROOM OPERATOR; Pap done 12/30/2023; Code(s): Z12.4 - Encounter for screening for malignant neoplasm of cervix Category: Medical (2) Encounter for screening examination for sexually transmitted disease: Code(s): Z11.3 - Encounter for screening for infections with a predominantly sexual mode of transmission Category: Medical (3) Morbid obesity with BMI of 50.0-59.9, adult: Code(s): E66.01 - Morbid (severe) obesity due to excess calories; Z68.43 - Body mass index [BMI] 50.0-59.9, adult Category: Medical (4) Breast cancer screening: Code(s): Z12.39 - Encounter for other screening for malignant neoplasm of breast Category: Medical (5) Perimenopausal symptoms: Code(s): N95.1 - Menopausal and female climacteric states Category: Medical Plan Director 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 She has never had an abnormal smear she has no children she had not been sexually active for a long time though she did have sex 1 time about a month ago so she would like to get checked for STIs. She did have some dysuria after that but it went away. She has had of very difficult 3 years she took care her mother and father in their last year's as well as 1 of her step parents. All 3 are now . She moved out of her apartment that she had for 28 years to care for her parents in their home and then because of unforeseen circumstances the house had to be sold and she is essentially homeless but she has been staying with her sister recently.. She has been getting lots of hot flashes she has been taking something liyp-rso-slbbfyw like Estroven and says it helps her. She was on something to help her lose weight but then the insurance company denied it. She has made calls to insurance companies to see which medication they were covered help with weight loss but has not been able to get a response back she had to reschedule her appointment with primary care in [place] because she was still awaiting the insurance information however she has got her an appointment 1 way or the other on Thursday with Mary Meade. She has bad hips and bad knees but she can not have either surgery until she loses weight. She did discuss bariatric surgery last year but she was afraid that until she figures out a way to help control her eating she would probably end up gaining the weight back. 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 She never had an abnormal Pap smear -----Discussed in this visit the following: healthy balanced diet, regular and consistent exercise, getting recommended health screens, doing the best she can for her particular health concerns, kegel exercises, pap smear screening and followup recommendations, mammography screening and SBE, normal changes in cycles in her life stage--- . ---Discussed normal changes that happen premenapausally, perimenapausally, and postmenopausally, and ways to handle them. Discussed the normal variation, and the range of experiences that women experience. Discussed nutrition, health, need for exercise, both weight-bearing and aerobic. Also discussed the normal changes that happen with vaginal mucosal thinning and sensitivity, and simple more natural ways of handling these challenges. Discussed that how each women experiences it is different everybody and there was no particular guarantee about when her periods will go away completely and as long as she is still getting periods then that is also an indication that her hormone levels are in the more normal range and there are some pluses to that in that it delays the wrinkling and vaginal drying and other changes as well protect her for her bones as well.. - Discussed that everyone experiences menopause differently Discussed the I would recommend getting what ever assistance she can with her weight as all things will flow from the terms of being able to deal with her other orthopedic challenges and I wished her very much well with future efforts in this regard. If she has a normal Pap smear she would not need another 1 for 5 years. Testing we did today was for gonorrhea chlamydia trichomoniasis Mitzi and Gardnerella the last 2 which are not STIs and normal floor in our vagina is and do not need to be treated unless she is having symptoms and if anything is positive we will call her for that. She would like to get full testing for STIs I will place orders for HIV hep B hep C syphilis but I recommend she consider waiting till she sees her primary care provider on Thursday in case other labs are added and she can get them all done 1 time. Orders: Orders Hepatitis C Antibody Today Z11.3 - Encounter for screening for infections with a predominantly sexual mode of transmission, Z12.4 - Encounter for screening for malignant neoplasm of cervix Syphilis Screen Today Z11.3 - Encounter for screening for infections with a predominantly sexual mode of transmission, Z12.4 - Encounter for screening for malignant neoplasm of cervix PAP + HPV E6/E7 rfx 18/45 Today Z01.419 - Encounter for gynecological examination (general) (routine) without abnormal findings Bacterial Vaginosis Panel Today N89.8 - Other specified noninflammatory disorders of vagina Hepatitis B Surface Antigen Today Z11.3 - Encounter for screening for infections with a predominantly sexual mode of transmission, Z12.4 - Encounter for screening for malignant neoplasm of cervix HIV Ab/Ag Today Z11.3 - Encounter for screening for infections with a predominantly sexual mode of transmission, Z12.4 - Encounter for screening for malignant neoplasm of cervix CT NG by PCR Today N89.8 - Other specified noninflammatory disorders of vagina, Z20.2 - Contact with and (suspected) exposure to infections with a predominantly sexual mode of transmission Coding Level of Care Code New Pt Prev Care 40-64y(79413) Diagnoses Cervical cancer screening Z12.4 Encounter for screening examination for sexually transmitted disease Z11.3 Morbid obesity with BMI of 50.0-59.9, adult E66.01; Z68.43 Breast cancer screening Z12.39 Perimenopausal symptoms N95.1
== END 2023-12-30 16:14 | disposition home or self-care (01) ==
PROVIDERS: PCP Nurse Practitioner Family; Visit Provider Advanced Practice Midwife
DX: Z01.419 Encounter for gynecological examination (general) (routine) without abnormal findings (principal); N95.1 Menopausal and female climacteric states; E66.01 Morbid (severe) obesity due to excess calories; Z68.43 Body mass index [BMI] 50.0-59.9, adult
CPT/HCPCS: G0101; Q0091

== ENCOUNTER 2023-12-30 15:02 | Outpatient (REF) | payer MEDICARE, MEDICAID, SELFPAY ==
[2023-12-31 06:01] LABS: CT PCR NOT DETECTED (Not Detect.); NG PCR NOT DETECTED (Not Detect.)
[2023-12-31 10:46] LABS: Bacterial Vaginosis PCR POSITIVE (Negative); Candida Group PCR NOT DETECTED (Not Detect); Candida glab krusei PCR NOT DETECTED (Not Detect); Trichomonas vaginalis PCR NOT DETECTED (Not Detect)
[2024-01-01 16:47] LABS: HPV mRNA E6/E7 Not Detected (Not Detected)
== END 2023-12-30 15:03 | disposition home or self-care (01) ==
LOC: HO.LAB 15:02
PROVIDERS: PCP Nurse Practitioner Family; Visit Provider Advanced Practice Midwife
DX: Z01.419 Encounter for gynecological examination (general) (routine) without abnormal findings (principal); N89.8 Other specified noninflammatory disorders of vagina; Z20.2 Contact with and (suspected) exposure to infections with a predominantly sexual mode of transmission
CPT/HCPCS: 0352U; 36415; 87491; 87591; 87624; 88175; G0101; Q0091

== ENCOUNTER 2024-01-12 08:55 | Outpatient (AMB) | payer MEDICARE, MEDICAID, SELFPAY ==
--- NOTE | 2024-01-12 08:59 | A.OFFPC_ITS ---
<Statement entered by Shonna Ng RN - 01/12/24 10:21> Patient left the office before receiving her flu shot or TDaP today. Vital Signs 01/12/24 09:01 Height 5 ft 5 in Weight 315 lb 3 oz BMI 52.4 BP 122/72 Blood Pressure Location Rt brachial Position Sitting Respiration 14 Pulse 70 Pulse Source Pulse Oximeter Pulse Oximetry (%) 96 Oxygen Delivery Method Room Air Intake Visit Reasons: PCP 1 mos weight management Intake Note: follow up on weight management Allergies venlafaxine [From Effexor] Allergy (Unknown, Verified 01/12/24 09:26) Unknown Medication List - Last Reconciled 01/12/24 by Hailey Gutiérrez, [employer]UD[employer]- acetaminophen (Tylenol) 325 mg PO QID PRN albuterol sulfate 90 mcg/actuation (Ventolin HFA) 2 puffs PO Q4-6H PRN albuterol sulfate 1.25 mg (3 mL) inhalation Q4-6H PRN atorvastatin 40 mg PO BEDTIME flunisolide 1 spray intranasal BID 1 month fluoxetine 40 mg PO DAILY fluticasone furoate-vilanterol 100-25 mcg/dose (Breo Ellipta) 1 inh inhalation DAILY gabapentin 300 mg PO TID 30 days ibuprofen 800 mg PO Q8H ipratropium bromide 17 mcg/actuation (Atrovent HFA) 2 puffs inhalation QID lamotrigine 200 mg PO DAILY levalbuterol tartrate 45 mcg/actuation 1 puff PO Q4-6H PRN metronidazole 0.75%(37.5mg/5gram) 1 appful vaginal BEDTIME 5 days trazodone mg PO Tobacco use date assessed: 12/01/23 Dental Screening Dental Screen Date: 08/05/23 HPI HPI Comments History of Present Illness Details 53-year-old female with polycythemia, cu rrent smoker, marijuana user, M DD, COPD, morbid obesity seasonal allergies, HLD Status post right knee surgery, cholecystectomy, extraction of renal calculus, spinal fusion Specialists Pulmonology Urology Vascular surgery Bariatric surgery Orthopedics Psych/Counseling Health Maintenance: Mammo 05/05/23 Colon referred for first colon DEXA - cont to get her periods Pap overdue Tdap & Flu due Here to discuss wt loss meds her insurance wont cover GLP 1 Gave me list of covered meds which are acarbose, glimerpide and glyxambi -- she is not eligible for these. She does not have DM. She is not a candidate for bariatric surgery; given her lifestyle. She needs to lose wt to have R hip surgery and bilat knee surgery.; [facility], told needs to be 250lbs or no surgery Offered to refer elsewhere, as she lives in [place] and has limited transportation, prefers appts in this area; specifically [facility] Dr Billy, she said she worked w/ him, he operated on her and she worked w/ him & didnt want to se him. After discussion, she will take the referral. She is homeless, living in car w/ dog, staying in [facility]. 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 Has worked w/ our NN & declined brief intervention today. She is due for Tdap and Flu and willing to get today. Discussed at length with her that prescribing a weight loss medication given her current status which is a risk for malnutrition is contraindicated. Although her BMI is elevated, she does not have access to nutritious foods or options. She has to eat whatever is covered by her food stamps and foods that do not need to be refrigerated as she does not have access to a Fridge. She is up-to-date on her labs which did not show an malnutrition at that time. However to give her a medication which would block food absorption is not in her best interest at this time. She understands this. Lots of time was spent on reviewing options for social support. Exam Awake alert tearful when talking about situation, frustrated, cooperative speaking in full sentences Plan: Info for [facility] program provided to her today Tdap and Flu shot today. Nurses report when they entered the room to admin, the room was empty. She left without these vaccinations. New referral placed to [facility] to see if she would be a surgical candidate under their program rather than need to lose weight Continue to work social support for housing, etc. Follow up as scheduled This note is constructed using voice recognition software. While every effort has been made to ensure accuracy in timber hand, still errors may have been included Sometimes, these errors may affect the content or meaning of the given sentence . Total time spent caring for the patient today was 45 minutes. This includes time spent before the visit reviewing the chart, time spent during the visit, and time spent after the visit on documentation [facility] Medical History Polycythemia Surgical History Hx of spinal fusion History of extraction of renal calculus H/O right knee surgery History of cholecystectomy Family History Father Diabetes Heart disease Alzheimer disease Mental health disorder Substance use disorder Mother Diabetes Stroke Brain tumor H/O bilateral mastectomy Mental health disorder Substance use disorder Maternal Grandmother Lung cancer Brother Hypertension Obesity Diabetes Family/Other Polycythemia Diabetes Social History Household Members: None Housing: House Are you a primary career technical supervisor to a significant other at home: No Do you presently have visiting nurse or other home services: No 75 years or older and lives alone: No Alcohol intake: never Patient Tobacco Use Status: Current everyday Tobacco user Tobacco use type: Cigarette Cigarette Packs Per Day: 1 Cigarettes Per Day: 20 Years Smoked: 1 Packs Per Year: 1 Packs per year/per ci.00 e-Cigarette/Vaping Use: Never Used Second Hand Smoke Exposure: No Substance Use Type: Marijuana service: No Current occupational status: disabled Current occupation: [employer] Sexual orientation: Straight/Heterosexual Gender identity: Female Cognitive needs: No Hearing needs: No Vision needs: Yes Female Reproductive History Menstrual Age of Menarche: 13 Questionnaire PHQ-9 Over the last 2 weeks, how often have you been bothered by any of the following problems? 1. Little interest or pleasure in doing things: nearly every day 2. Feeling down, depressed, or hopeless: nearly every day 3. Trouble falling or staying asleep, or sleeping too much: several days 4. Feeling tired or having little energy: nearly every day 5. Poor appetite or overeating: nearly every day 6. Feeling bad about yourself - or that you are a failure or have let yourself or your family down: several days 7. Trouble concentrating on things, such as reading the newspaper or watching television: more than half the days 8. Moving or speaking so slowly that other people could have noticed. Or the opposite - being so fidgety or restless that you have been moving around a lot more than usual: nearly every day 9. Thoughts that you would be better off or of hurting yourself in some way: several days Total score: 20 50313 - PHQ-9 Billing: Yes Source: Developed by Drs. Yaron Joseph, Chralotte Lang, Thomas Mckay and colleagues, with an educational saurabh from [employer]. Thrive Questionnaire Date Thrive assessed: 08/05/23 PITERO-7 AMB Questionnaire PIETRO-7 Date PIETRO - 7 assessed: 01/12/24 Feeling nervous, anxious, or on edge: 3 = Nearly every day Not being able to stop or control worryin = Nearly every day Worrying too much about different things: 3 = Nearly every day Trouble relaxin = Nearly every day Being so restless that it is hard to sit still: 3 = Nearly every day Becoming easily annoyed or irritable: 3 = Nearly every day Feeling afraid as if something awful might happen: 0 = Not at all Total PIETRO-7 score (0-4 normal; 5-9 mild; 10-14 moderate; 15-21 severe): 18 Source: Developed by Drs. Yaron Joseph, Charlotte Lang, Thomas Mckay and colleagues, with an educational saurabh from [employer]. PIETRO-7 Assessment Billing PIETRO-7 Assessment Tool: PIETRO-7 Assessment 59656 Physical exam (Primary Care) Vital Signs: Last Vital Signs Pulse 70 01/12/24 09:01 Resp 14 01/12/24 09:01 BP 122/72 01/12/24 09:01 Pulse Ox 96 01/12/24 09:01 Oxygen Delivery Method Room Air 01/12/24 09:01 BMI result Body Mass Index 52.4 Tobacco/Smoking Status: Tobacco use Status Tobacco use date assessed 12/01/23 01/12/24 09:00 Patient Tobacco Use Status Current everyday Tobacco 01/12/24 09:00 Tobacco use type Cigarette 01/12/24 09:00 e-Cigarette/Vaping Use Never Used 01/12/24 09:00 PHQ-9: PHQ-9 Score PHQ-9: Total score 20 01/12/24 10:01 Thrive Assessment: Date of Thrive Assessment Date Thrive assessed 08/05/23 01/12/24 09:00 Coding Level of Care Code Est Pt Level 5 (45007) Complex EM visit Add On G2211 Diagnoses Homelessness Z59.00 Morbid obesity with BMI of 50.0-59.9, adult E66.01; Z68.43 At risk for malnutrition Z91.89 Class 3 obesity E66.813 Encounter for screening involving social determinants of health (SDoH) Z13.9 Additional Codes PIETRO-7 Assessment Billing - PIETRO-7 Assessment Tool: PIETRO-7 Assessment 42316 ([id number]) Assessment & Plan Assessment & Plan (1) Homelessness: Code(s): Z59.00 - Homelessness unspecified Category: Social Hx Plan: . (2) Morbid obesity with BMI of 50.0-59.9, adult: Code(s): E66.01 - Morbid (severe) obesity due to excess calories; Z68.43 - Body mass index [BMI] 50.0-59.9, adult Category: Medical Plan: . (3) At risk for malnutrition: Code(s): Z91.89 - Other specified personal risk factors, not elsewhere classified Category: Medical Plan: . (4) Class 3 obesity: Code(s): E66.813 - Obesity, class 3 Category: Medical Plan: . (5) Encounter for screening involving social determinants of health (SDoH): Comment: refer to NN Code(s): Z13.9 - Encounter for screening, unspecified Category: Medical Plan: . Orders: Referrals Orthopedics Referral M25.551 - Pain in right hip, M25.561 - Pain in right knee, M25.562 - Pain in left knee Patient Instructions: [facility] About the [facility] Program The [facility] Program provides free health insurance information, counseling, and assistance to people who are eligible for Medicare and their caregivers. Certified, trained [facility] counselors, who are often volunteers, work with participants to help explore Medicare plan options and uncover ways to save money on both health insurance and prescription drug costs.?? How can a [facility] Counselor help me?? A [facility] counselor will help you:? Understand your Medicare and other health insurance and drug coverage options Find the right coverage for you? Find ways you can save money on your prescription drugs and health insurance? Help you apply for programs that will lower your costs? Provide information to help you make the best coverage selection? Find a [facility] counselor [facility] Counselors are available to meet in person at the following locations:?? Senior centers?? [facility]? [facility] counselors are also available to meet by telephone. You can find a [facility] counselor near you by calling [facility] at , or by exploring the [facility] staff directory.
[2024-01-12 09:01] VITALS: BP 122/72; PULSE 70; RESP 14; O2SAT 96; BMI 52.4
== END 2024-01-12 10:00 | disposition home or self-care (01) ==
PROVIDERS: PCP Nurse Practitioner Family; Visit Provider Nurse Practitioner Family
DX: E66.813 Obesity, class 3 (principal); Z59.00 Homelessness unspecified; Z68.43 Body mass index [BMI] 50.0-59.9, adult; Z91.89 Other specified personal risk factors, not elsewhere classified

== ENCOUNTER → 2024-01-12 08:55 | Outpatient (BNVA) | payer MEDICARE, MEDICAID, SELFPAY | PROVIDERS: PCP Nurse Practitioner Family; Visit Provider Nurse Practitioner Family | DX: E66.01 Morbid (severe) obesity due to excess calories (principal); Z68.43 Body mass index [BMI] 50.0-59.9, adult; Z59.00 Homelessness unspecified; Z71.3 Dietary counseling and surveillance | CPT/HCPCS: 96127; 99212 ==

== ENCOUNTER 2024-08-23 10:03 | Outpatient (AMB) | payer MEDICARE, MEDICAID, SELFPAY ==
--- NOTE | 2024-08-23 10:06 | A.OFFPC_ITS ---
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 and families. National Runaway Safeline: The National Runaway Safeline helps youth who have run away, are thinking about running away, or who already ran away but are ready to come home. Parents and guardians can also contact the hotline if they are worried about their child running away or if their child has already left home. The hotline is available 24 hours a day, seven days a week. Youth, parents, and guardians can also use the online chat feature on the [facility] website to ask for help and get support, [place] [address]. [facility] National Suicide Prevention Lifeline: The [place] Suicide Prevention Lifeline is a network of local crisis centers that are available 27/10 to provide support for youth and adults who are in any kind of emotional crisis. In addition to the main hotline number listed above, there are several other numbers to call depending on your needs: U[place]ayan Language: Deaf and Hard of [phone] Veterans: Disaster Distress: Anyone can also use their online chat feature on their website. [place] Suicide Prevention Lifeline [facility] Helpline: The [facility] Helpline is available to anyone in [place] who is need of emotional support. Anyone can call or text the helpline to receive help from specially trained volunteers. [place] high school and college students can also get online support through the IMHear_ program. For high school students, volunteers ages 15-18 are available Thursday- from 6-9PM. For college students, IMHear_ is available Thursday-Thursday from 5-9PM. The Yobani Project - The Yobani Project is a 27/10 crisis intervention and suicide prevention hotline for LGBTQ youth. Youth can also text Yobani to for support, or use the online chat feature on the Yobani Project's website. TrevorText is available Thursday-Thursday between 3-10PM. TrevorChat is available seven days a week between 3-10PM. SafeLink: SafeLink is for anyone who is being affected by domestic violence or dating violence. Volunteers at SafeLink speak Ugandan and [place]ayan, and [employer] also has a service that can provide translation in more than 130 languages. TTY: About the SHINE Program The SHINE Program provides free health insurance information, counseling, and assistance to people who are eligible for Medicare and their caregivers. Certified, trained SHINE counselors, who are often volunteers, work with participants to help explore Medicare plan options and uncover ways to save money on both health insurance and prescription drug costs.?? How can a SHINE Counselor help me?? A SHINE counselor will help you:? Understand your Medicare and other health insurance and drug coverage options Find the right coverage for you? Find ways you can save money on your prescription drugs and health insurance? Help you apply for programs that will lower your costs? Provide information to help you make the best coverage selection? Find a SHINE counselor SHINE Counselors are available to meet in person at the following locations:?? [facility]?? [facility] Point? SHINE counselors are also available to meet by telephone. You can find a SHINE counselor near you by calling zhiwo at , or by exploring the [employer] staff directory. Health screenings for women You should visit your health care provider from time to time, even if you are healthy. The purpose of these visits is to: Screen for medical issues Assess your risk for future medical problems Encourage a healthy lifestyle Update vaccinations and other preventive care services Help you get to know your provider in case of an illness Information Even if you feel fine, you should still see your provider for regular checkups. These visits can help you avoid problems in the future. For example, the only way to find out if you have high blood pressure is to have it checked regularly. High blood sugar and high cholesterol levels also may not have any symptoms in the early stages. A simple blood test can check for these conditions. There are specific times when you should see your provider or receive specific health screenings. The US Preventive Services Task Force publishes a list of recommended screenings. Below are screening guidelines for women ages 18 to 39. BLOOD PRESSURE SCREENING Your blood pressure should be checked at least once every 3 to 5 years if: Your blood pressure is in the normal range (top number less than 120 mm Hg and bottom number less than 80 mm Hg) You don't have risk factors for high blood pressure Ask your provider if you need your blood pressure checked more often if: The top number is 120 to 129 mm Hg or the bottom number is 70 to 79 mm Hg You have diabetes, heart disease, kidney problems, are overweight, or have certain other health conditions You have a first-degree relative with high blood pressure You are Black You had high blood pressure during a If the top number is 130 mm Hg or greater or the bottom number is 80 mm Hg or greater, this is considered stage 1 hypertension. Schedule an appointment with your provider to learn how you can reduce your blood pressure. Watch for blood pressure screenings in your area. Ask your provider if you can stop in to have your blood pressure checked. BREAST CANCER SCREENING Experts do not agree about the benefits of breast self-exams in finding breast cancer or saving lives. Talk to your provider about what is best for you. A screening mammogram is not recommended for most women under age 40. Your provider may discuss and recommend mammograms, MRI scans, or ultrasounds if you have an increased risk for breast cancer, such as: A mother or sister who had breast cancer at a young age (most often starting screening earlier than the age the close relative was diagnosed) You carry a high-risk genetic marker CERVICAL CANCER SCREENING Cervical cancer screening should start at age 21 years unless your provider advises otherwise. After the first test: Women ages 21 through 29 should have a Pap test every 3 years. Exoprts do not agree on whether HPV testing is recommended for this age group. Women ages 30 through 65 should be screened with either a Pap test every 3 years or the HPV test every 5 years or both tests every 5 years (called cotesting ). Women who have been treated for precancer (cervical dysplasia) should continue to have Pap tests for 20 years after treatment or until age 65, whichever is longer. If you have had your uterus and cervix removed (total hysterectomy), and you have not been diagnosed with cervical cancer or precancer (high grade cervical neoplasia), you do not need cervical cancer screening. CHOLESTEROL SCREENING Cholesterol screening should begin at: Age 45 for women with no known risk factors for coronary heart disease Age 20 for women with known risk factors for coronary heart disease Repeat cholesterol screening should take place: Every 5 years for women with normal cholesterol levels More often if changes occur in lifestyle (including weight gain and diet) More often if you have diabetes, heart disease, kidney problems, or certain other conditions DIABETES SCREENING You should be screened for diabetes starting at age 35 and then repeated every 3 years if you have no risk factors for diabetes. Screening may need to start earlier and be repeated more often if you have other risk factors for diabetes, such as: You have a first degree relative with diabetes. You are overweight or have obesity. You have high blood pressure, prediabetes, or a history of heart disease. Screening for diabetes should be done if you are planning to become and you are overweight and have other risk factors such as high blood pressure. DENTAL EXAM Go to the dentist once or twice every year for an exam and cleaning. Your dentist will evaluate if you need more frequent visits. EYE EXAM Have an eye exam every 5 to 10 years before age 40. If you have vision problems, have an eye exam every 2 years or more often if recommended by your provider. You should have an eye exam that includes an examination of your retina (back of your eye) at least every year if you have diabetes. IMMUNIZATIONS Commonly needed vaccines include: Flu shot: get one every year. COVID-19 vaccine: ask your provider what is best for you. Tetanus-diphtheria and acellular pertussis (Tdap) vaccine: have one at or after age 19 as one of your tetanus-diphtheria vaccines if you did not receive it as an adolescent. Tetanus-diphtheria: have a booster (or Tdap) every 10 years. Varicella vaccine: receive 2 doses if you never had chickenpox or the varicella vaccine. Hepatitis B vaccine: receive 2, 3, or 4 doses, depending on your exact circumstances. Measles, mumps, and rubella (MMR) vaccine: receive 1 to 2 doses if you are not already immune to MMR. Your provider can tell you if you are immune. Ask your provider about the human papillomavirus (HPV) vaccine if: You have not received the HPV vaccine in the past You have not completed the full vaccine series (you should catch up on this shot) Ask your provider if you should receive other immunizations if you have certain health problems that increase your risk for some diseases such as pneumonia. INFECTIOUS DISEASE SCREENING Women who are sexually active should be screened for chlamydia and gonorrhea up until age 25. Women 25 years and older should be screened for chlamydia and gonorrhea if at high risk. Screening for hepatitis C: All adults ages 18 to 79 should get a one-time test for hepatitis C. people should be screened at every . Screening for human immunodeficiency virus (HIV): All people ages 15 to 65 should get a one-time test for HIV. Depending on your lifestyle and medical history, you may also need to be screened for infections such as syphilis and HIV, as well as other infections. PHYSICAL EXAM All adults should visit their provider from time to time, even if they are healthy. The purpose of these visits is to: Screen for disease Assess your risk of future medical problems Encourage a healthy lifestyle Update your vaccinations and other preventive care services Maintain a relationship with a provider in case of an illness Your height, weight, and BMI should be checked at every exam. During your exam, your provider may ask you about: Depression and anxiety Diet and exercise Alcohol and tobacco use Safety issues, such as using seat belts, smoke detectors, and intimate partner violence Your medicines and risk for interactions SKIN SELF-EXAM Your provider may check your skin for signs of skin cancer, especially if you're at high risk, such as if you: Have had skin cancer before Have close relatives with skin cancer Have a weakened immune system OTHER SCREENING Talk with your provider about colon cancer screening if you have a strong family history of colon cancer or polyps, or if you have had inflammatory bowel disease or polyps yourself. Routine bone density screening of women under 40 is not recommended.
[2024-08-23 10:14] VITALS: BP 110/72; PULSE 68; RESP 12; TEMP 36.3; O2SAT 98; BMI 42.8
--- OUTSIDE RECORDS SUMMARY | 2024-08-23 11:15 | XMS_ITS | Clinical Summary ---
Author Organization [facility] Address [address] [place] [address] Care Team Providers Care Core Machine Tender Name Role Phone Unavailable Primary Care Provider Unavailabl e Source Comments PLEASE NOTE, if this patient is a minor, it may be UNLAWFUL to discuss sensitive information that is contained in these records (such as FAMILY PLANNING, MENTAL HEALTH or SUBSTANCE ABUSE) with the minor patient's parent or other person without the patient's specific authorization.[facility] Social History Tobacco Use Types Packs/Day Years Used Date Smoking Tobacco: Never Assessed Social Connections Answer Date Recorded Social Connections and Isolation 0 09/19/2020 Financial Resource Strain Answer Date R ecorded Financial Resource Strain 0 2020 Stress Answer Date Recorded Stress 0 09/19/2020 Physical Activity Answer Date Recorded Physical Activity 0 09/19/2020 Food Insecurity Answer Date Recorded Food 0 09/19/2020 Transportation Needs Answer Date Record ed Transportation 0 09/19/2020 Housing Stability Answer Date Recorded Housing 0 09/19/2020 Safety and Environment Answer Date Shaw rded Safety 0 09/19/2020 Utilities Answer Date Recorded Utilities 0 09/19/2020 Employment Answer Date Recorded Employment 0 09/19/2020 Comments Unknown Sex and Gender Information Value Date Recorded Sex Assigned at Not on file Legal Sex Female 10:27 AM PDT Gender Identity Not on file Sexual Orientation Not on file Plan of Treatment Not on file Insurance [place] MEDICAID DENTAL [facility] NET DENTAL
== END 2024-08-23 15:47 | disposition home or self-care (01) ==
LOC: HO.HMCFM 10:04
PROVIDERS: PCP Nurse Practitioner Family; Visit Provider Nurse Practitioner Family
DX: Z00.00 Encounter for general adult medical examination without abnormal findings (principal); E66.01 Morbid (severe) obesity due to excess calories; Z68.41 Body mass index [BMI] 40.0-44.9, adult; J41.0 Simple chronic bronchitis; F33.1 Major depressive disorder, recurrent, moderate; Z91.09 Other allergy status, other than to drugs and biological substances; F41.1 Generalized anxiety disorder; Z59.00 Homelessness unspecified; E78.2 Mixed hyperlipidemia; N95.1 Menopausal and female climacteric states; Z87.891 Personal history of nicotine dependence; Z12.11 Encounter for screening for malignant neoplasm of colon

== ENCOUNTER → 2024-08-23 10:03 | Outpatient (BNVA) | payer MEDICARE, MEDICAID, SELFPAY | PROVIDERS: PCP Nurse Practitioner Family; Visit Provider Nurse Practitioner Family | DX: Z00.01 Encounter for general adult medical examination with abnormal findings (principal); Z23 Encounter for immunization; E66.01 Morbid (severe) obesity due to excess calories; Z68.41 Body mass index [BMI] 40.0-44.9, adult; J41.0 Simple chronic bronchitis; F41.1 Generalized anxiety disorder; Z91.09 Other allergy status, other than to drugs and biological substances; E78.2 Mixed hyperlipidemia; F33.1 Major depressive disorder, recurrent, moderate; N95.1 Menopausal and female climacteric states; I83.12 Varicose veins of left lower extremity with inflammation; Z87.891 Personal history of nicotine dependence; Z59.00 Homelessness unspecified | CPT/HCPCS: 90471; 90715; 96127; 99212; 99396 ==

== ENCOUNTER 2024-11-24 13:33 | Outpatient (AMB) | payer MEDICARE, MEDICAID, SELFPAY ==
--- NOTE | 2024-11-24 13:36 | AM.OFFWIN_ITS ---
Intake Vital Signs 11/24/24 13:42 Height 5 ft 5 in Weight 255 lb BMI 42.4 BP 118/68 Blood Pressure Location Rt brachial Position Sitting Respiration 12 Pulse 61 Pulse Source Pulse Oximeter Temp 97.5 F Temp Source Oral Pulse Oximetry (%) 96 Oxygen Delivery Method Simple Mask Intake Visit Reasons: sick visit Intake Note: Patient c/o body aches, right earache, coughing, mucus with red stuff in it, vomiting, fever, and headache and it started this lat Thursday. Patient is requesting a nebulizer for her breathing. Patient Tobacco Use Status: Current everyday Tobacco user [employer] Super[employer] Required: No Allergies venlafaxine (From Effexor) Allergy (Unknown, Verified 11/24/24 13:51) Unknown Medication List - Last Reconciled 11/24/24 by Hailey Gutiérrez [facility]- acetaminophen (Tylenol) 325 mg PO QID PRN albuterol sulfate 90 mcg/actuation (Ventolin HFA) 2 puffs PO Q4-6H PRN albuterol sulfate 1.25 mg (3 mL) inhalation Q4-6H PRN aspirin 81 mg PO DAILY celecoxib 200 mg PO DAILY flunisolide 1 spray intranasal BID 1 month fluoxetine 40 mg PO DAILY fluticasone furoate-vilanterol 100-25 mcg/dose (Breo Ellipta) 1 inh inhalation DAILY fluticasone propionate 50 mcg/actuation 1 spray intranasal BID ipratropium bromide 17 mcg/actuation (Atrovent HFA) 2 puffs inhalation QID lamotrigine 200 mg PO DAILY levalbuterol tartrate 45 mcg/actuation 1 puff PO Q4-6H PRN lorazepam 1 mg PO DAILY PRN nitrofurantoin monohyd/m-cryst 100 mg (Macrobid) 100 mg PO BID tizanidine 2 mg PO Q8H PRN tramadol 50 mg PO Q4H PRN trazodone mg PO Do you need a note to return to daycare/school/sports/work: No HPI HPI Comments History of Present Illness Details 54-year-old female with polycythemia, cu rrent smoker, marijuana user, MDD, COPD, morbid obesity seasonal allergies, HLD, Left adrenal nodularity (chronic), nephrolithiasis, COPD/Asthma overlap History of Present Illness - The patient is a 54-year-old female pr esenting with respiratory difficulties and cough. - Symptoms began Thursday with body aches, headache, severe cough. one episode of vomiting; exposed to sick contacts. - Fever peaked on Thursday, resolved ther eafter; ongoing respiratory trouble. - Utilizes Mucinex, Tylenol, Motrin, cou gh drops; using inhalers. - Does not have a nebulizer machine sinc e it broke. Needs a new one. Review of Systems - Respiratory: Reports severe cough and breathing difficulties, reports wheezing. - General: Reports body aches, headaches ; denies current fever. - Gastrointestinal: Reports vomiting. - Musculoskeletal: Reports knee surgery recovery. - Neurological: Denies any dizziness or confusion. Physical Exam General: Well developed, well nourished, in no acute distress. Appears stated age. Head: Normocephalic, atraumatic. Eyes: Pupils are equal, round and reactive to light and accommodation. Conjunctivae are clear. Ears: TM intact and clear bilat Nares: Clear drainage, no sinus tenderness Mouth: Pharynx clear Lungs: Faint exp wheeze throughout, no dyspnea Heart: Regular rate and rhythm. No murmurs, click, rubs or gallops are noted. Psych: Mood and affect appropriate Discussion Notes I discussed with the patient her symptoms which are indicative of an acute respiratory infection, likely viral in nature, given the absence of bacterial infection signs. I reviewed her anagement and agreed to provide a prescription for a nebulizer machine to facilitate her treatment. I decided to prescribe Prednisone to address the inflammation in her lungs, with instruction to follow up if no improvement. I assured her that the nebulizer machine prescription would be processed urgently and that she would be contacted once it is available at a certified medical supply provider. Patient was given time to ask questions. All questions were answered to their satisfaction. Assessment and Plan 1. Acute Respiratory Infection - Prescribe Prednisone. - Provide nebulizer machine. - Cont inhalers - Follow up if symptoms persist. Patient Instructions - Take Prednisone as directed. - Monitor symptoms, return if no improve ment. Consent Patient was informed and verbally consented to the use of an ambient scribe for clinic note documentation during this visit. [facility] Medical History (Updated 09/05/24 @ 16:42 by Mili Tran MD) Polycythemia Surgical History (Updated 08/23/24 @ 10:53 [facility] H/O right knee surgery History of cholecystectomy History of extraction of renal calculus Hx of spinal fusion Status post THR (total hip replacement) (~08/2024) Family History Father Diabetes Heart disease Alzheimer disease Mental health disorder Substance use disorder Mother Diabetes Stroke Brain tumor H/O bilateral mastectomy Mental health disorder Substance use disorder Maternal Grandmother Lung cancer Brother Hypertension Obesity Diabetes Family/Other Polycythemia Diabetes Social History Household Members: None Housing: House Are you a primary lawn care technician to a significant other at home: No Do you presently have visiting nurse or other home services: No 75 years or older and lives alone: No Alcohol intake: never Patient Tobacco Use Status: Current everyday Tobacco user Tobacco use type: Cigarette Cigarette Packs Per Day: 1 Cigarettes Per Day: 20 Years Smoked: 1 e-Cigarette/Vaping Use: Never Used Second Hand Smoke Exposure: No Substance Use Type: Marijuana service: No Current occupational status: disabled 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 Sexual orientation: Straight/Heterosexual Gender identity: Female Cognitive needs: No Hearing needs: No Vision needs: Yes Female Reproductive History Menstrual Age of Menarche: 13 Physical Exam Vital Signs: Last Vital Signs Temp 97.5 F 11/24/24 13:42 Pulse 61 11/24/24 13:42 Resp 12 11/24/24 13:42 BP 118/68 11/24/24 13:42 Pulse Ox 96 11/24/24 13:42 Oxygen Delivery Method Simple Mask 11/24/24 13:42 BMI result Body Mass Index 42.4 Assessment & Plan Assessment & Plan (1) Mild persistent asthma, uncomplicated: Code(s): J45.30 - Mild persistent asthma, uncomplicated (2) COPD (chronic obstructive pulmonary disease): Comment: without exacerbation, managed by [facility] Pulm cont inhalers Code(s): J44.9 - Chronic obstructive pulmonary disease, unspecified Qualifiers: COPD type: chronic bronchitis Chronic bronchitis type: simple Qualified Code(s): J41.0 - Simple chronic bronchitis (3) Viral URI with cough: Code(s): J06.9 - Acute upper respiratory infection, unspecified Plan . Medications: New prednisone 50 mg PO DAILY 5 tabs 0RF 5 days Discontinued nitrofurantoin monohyd/m-cryst 100 mg (Macrobid) must administer with a meal/food Discontinued Reason: Patient Completed Course 100 mg PO BID 14 caps 0RF Coding Level of Care Code Est Pt Level 3 (16246) Diagnoses Mild persistent asthma, uncomplicated J45.30 Simple chronic bronchitis J41.0 COPD type: chronic bronchitis Chronic bronchitis type: simple Viral URI with cough J06.9
[2024-11-24 13:42] VITALS: BP 118/68; PULSE 61; RESP 12; TEMP 36.4; O2SAT 96; BMI 42.4
--- OUTSIDE RECORDS SUMMARY | 2024-11-24 13:44 | XMS_ITS | Clinical Summary ---
Author Organization [facility] Address [address] [place] [address] Care Team Providers Care Orchard Hand Name Role Phone Unavailable Primary Care Provider [...] Plan of Treatment Not on file Insurance [place] MED[place] DENT[place] [facility] NET DENTAL
== END 2024-11-24 14:03 | disposition home or self-care (01) ==
LOC: HO.HMCFM 13:34
PROVIDERS: PCP Nurse Practitioner Family; Visit Provider Nurse Practitioner Family
DX: J45.30 Mild persistent asthma, uncomplicated (principal); J41.0 Simple chronic bronchitis; J06.9 Acute upper respiratory infection, unspecified

== ENCOUNTER → 2024-11-24 13:33 | Outpatient (BNVA) | payer MEDICARE, MEDICAID, SELFPAY | PROVIDERS: PCP Nurse Practitioner Family; Visit Provider Nurse Practitioner Family | DX: J45.30 Mild persistent asthma, uncomplicated (principal); J41.0 Simple chronic bronchitis; J06.9 Acute upper respiratory infection, unspecified | CPT/HCPCS: 99212 ==